=== PATIENT | female | born 1935 | race Caucasian/White ===

== ENCOUNTER 2019-11-17 09:33 | Outpatient (CLI) | payer MEDICARE, SELFPAY ==
--- NOTE | ~2019-11-17 | MM_ITS ---
EXAMINATION: MM screening pallavi BI w kaylee HISTORY: Screening mammogram TECHNIQUE: Craniocaudal and mediolateral oblique 3-D tomosynthesis images were obtained and synthetic 2-D images were generated. CAD analysis was submitted and interpreted. COMPARISON: 10/03/2018, 09/30/2017, 09/27/2016 and lateral digital screening mammogram examinations BREAST PARENCHYMAL COMPOSITION: There are scattered areas of fibroglandular density. FINDINGS: There is no evidence of suspicious mass, calcification, or architectural distortion to sugg est malignancy in either breast. There has been no suspicious interval change. IMPRESSION: 1. No mammographic evidence of malignancy. 2. Recommend routine screening mammography in one year. BI-RADS Category 1: Negative Reviewed, dictated and finalized at location A. NA LOADER
== END 2019-11-17 09:34 | disposition home or self-care (01) ==
LOC: ANHIMG 09:44
PROVIDERS: PCP Family Medicine; Visit Provider Family Medicine
DX: Z12.31 Encounter for screening mammogram for malignant neoplasm of breast (principal)
CPT/HCPCS: 77063; 77067

== ENCOUNTER 2020-12-26 09:52 | Outpatient (CLI) | payer MEDICARE, SELFPAY ==
--- NOTE | ~2020-12-26 | MM_ITS ---
EXAMINATION: MM screening pallavi BI w kaylee HISTORY: Screening mammogram TECHNIQUE: Craniocaudal and mediolateral oblique 3-D tomosynthesis images were obtained and synthetic 2-D images were generated. CAD analysis was submitted and interpreted. COMPARISON: 11/17/2019, 10/03/2018, 09/30/2017 bilateral digital screening mammogram examinations BREAST PARENCHYMAL COMPOSITION: There are scattered areas of fibroglandular density. FINDINGS: There is no evidence of suspicious mass, calcification, or architectural distortion to sugg est malignancy in either breast. There has been no suspicious interval change. IMPRESSION: 1. No mammographic evidence of malignancy. 2. Recommend routine screening mammography in one year. BI-RADS Category 1: Negative Reviewed, dictated and finalized at location A. TRONIC WARFARE SPECIALIST
== END 2020-12-26 09:53 | disposition home or self-care (01) ==
LOC: ANHIMG 09:55
PROVIDERS: PCP Physician Assistant; Visit Provider Physician Assistant
DX: Z12.31 Encounter for screening mammogram for malignant neoplasm of breast (principal)
CPT/HCPCS: 77063; 77067

== ENCOUNTER 2024-03-10 08:20 | Outpatient (CLI) | payer MEDICARE, SELFPAY ==
--- NOTE | ~2024-03-10 | MR_ITS ---
EXAMINATION: MR brain/brain stem wo/w con DATE: 03/10/2024 09:42 INDICATION: Other amnesia. TECHNIQUE: Magnetic resonance imaging (MRI) of the brain and brainstem was performed without and with 10 mL MultiHance intravenous contrast. COMPARISON: Brain MRI 03/18/2012 FINDINGS: There are few scattered foci of old microhemorrhage in the brain. There are scattered areas of nonspecific increased T2-weighted signal intensity in the cerebral white matter. There is no acut e ischemic infarct or abnormal mass lesion. There is a trace right mastoid effusion. There are likely changes of ocular lens replacement surgeries. There is mild mucosal thickening in the ethmoid sinuse s. IMPRESSION: 1. Worsening moderate nonspecific cerebral white matter disease, which likely represents chronic smal l vessel ischemic disease. 2. Scattered foci of old microhemorrhage in the brain, most likely secondary to amyloid angiopathy. Reviewed, dictated and finalized at location A. IMPRESSION: 1. Worsening moderate nonspecific cerebral white matter disease, which likely r epresents chronic small vessel ischemic disease. 2. Scattered foci of old microhemorrhage in the brain, most likely secondary to amyloid angiopathy.
== END 2024-03-10 08:21 | disposition home or self-care (01) ==
PROVIDERS: PCP Family Medicine; Visit Provider Physician Assistant Medical
DX: G40.909 Epilepsy, unspecified, not intractable, without status epilepticus (principal); F03.90 Unspecified dementia, unspecified severity, without behavioral disturbance, psychotic disturbance, mood disturbance, and anxiety; R41.3 Other amnesia; R90.82 White matter disease, unspecified
CPT/HCPCS: 70553; A9577

== ENCOUNTER 2024-06-15 14:05 | Outpatient (CLI) | payer MEDICARE, SELFPAY ==
[2024-06-15 14:35] LABS: Basophils Percent Auto 0.6 % (0.2-1.2); Eosinophils Absolute Auto 0.2 K/mm3 (0-0.3); Eosinophils Percent Auto 2.4 % (0-4.4); Hematocrit 39.3 % (37.0-47.0); Hemoglobin 13.3 g/dL (12.0-15.0); Immature Granulocyte Absolute 0.02 K/mm3 (0.00-0.031); Immature Granulocyte Percent A 0.3 % (0-0.5); Lymphocytes Absolute Auto 2.21 K/mm3 (0.9-3.2); Mean Corpuscular HGB Conc 33.8 g/dl (32-36); Mean Corpuscular Hemoglobin 34.5 pg (26-34); Mean Corpuscular Volume 102.1 fl (80-100); Mean Platelet Volume 10.1 fl (7.4-10.4); Monocytes Absolute Auto 0.6 K/mm3 (0.1-0.6); Monocytes Percent Auto 9.1 % (2.6-8.5); Neutrophils Absolute Auto 3.7 K/mm3 (1.3-6.7); Neutrophils Percent Auto 54.6 % (45.5-73.1); Platelet Count Result 199 k/mm3 (150-375); Red Blood Count 3.85 M/mm3 (4.2-5.4); Red Cell Distribution Width 12.3 % (11.5-14.5); White Blood Count 6.7 K/mm3 (4.5-10.0)
[2024-06-15 15:02] LABS: Alanine Aminotransferase 21 U/L (6-35); Albumin Level 4.5 g/dL (3.5-5.1); Alkaline Phosphatase 88 U/L (38-126); Anion Gap 8 mmol/L (4-12); Aspartate Amino Transferase 33 U/L (14-36); Bilirubin,Total 0.7 mg/dL (0.2-1.3); Blood Urea Nitrogen 13 mg/dL (7-17); Calcium 9.2 mg/dL (8.4-10.2); Carbon Dioxide 30 mmol/L (22-30); Chloride 93 mmol/L (98-107); Estimated Glomerular Filt Rate > 60; Glucose 106 mg/dL (65-110); Potassium 4.5 mmol/L (3.4-5.0); Sodium 131 mmol/L (137-145)
[2024-06-15 16:10] LABS: Folic Acid > 20.0 ng/mL (2.76->20)
[2024-06-19 13:33] LABS: Methylmalonic Acid 167 nmol/L (85-423)
[2024-06-21 17:09] LABS: Vitamin D 1,25 (OH)2 Total 41 pg/mL (18-72); Vitamin D2 1,25 (OH)2 <8 pg/mL; Vitamin D3 1,25 (OH)2 41 pg/mL
== END 2024-06-15 14:06 | disposition home or self-care (01) ==
PROVIDERS: PCP Family Medicine; Visit Provider Psychiatry & Neurology Neurology
DX: G40.909 Epilepsy, unspecified, not intractable, without status epilepticus (principal); G31.84 Mild cognitive impairment of uncertain or unknown etiology; I10 Essential (primary) hypertension; E55.9 Vitamin D deficiency, unspecified
CPT/HCPCS: 36415; 80053; 82607; 82652; 82746; 83921; 84443; 85025; 86038; 86039

== ENCOUNTER 2024-09-03 09:45 | Outpatient (CLI) | payer MEDICARE, SELFPAY ==
[2024-09-03 10:34] LABS: Anion Gap 6 mmol/L (4-12); Blood Urea Nitrogen 14 mg/dL (7-17); Carbon Dioxide 29 mmol/L (22-30); Chloride 98 mmol/L (98-107); Estimated Glomerular Filt Rate 59; Glucose 103 mg/dL (65-110); Potassium 4.5 mmol/L (3.4-5.0); Sodium 133 mmol/L (137-145)
[2024-09-03 11:39] LABS: Folic Acid 17.7 ng/mL (2.76->20)
== END 2024-09-03 09:46 | disposition home or self-care (01) ==
PROVIDERS: PCP Family Medicine; Visit Provider Family Medicine
DX: D75.89 Other specified diseases of blood and blood-forming organs (principal); E87.5 Hyperkalemia
CPT/HCPCS: 36415; 80048; 82607; 82746

== ENCOUNTER 2024-12-21 09:12 | Inpatient (IN) | payer MEDICARE, SELFPAY ==
[2024-12-21] VITALS (13 sets, daily range): BP systolic 159–228; BP diastolic 64–169; PULSE 57–71; RESP 16–20; TEMP 36.4–36.5; O2SAT 96–100; BMI 22.5
--- NOTE | ~2024-12-21 | MR_ITS ---
EXAMINATION: MR brain/brain stem wo/w con DATE: 12/22/2024 11:23 INDICATION: Left-sided weakness TECHNIQUE: Magnetic resonance imaging (MRI) of the brain and brainstem was performed without and with 10 mL ProHance intravenous contrast. Sequences included sagittal and axial T1-weighted SE, axial dif fusion-weighted FS SE, axial 3D SWAN, axial T2-weighted FLAIR, and axial T2-weighted FSE. Postcontras t axial and coronal T1-weighted SE was obtained. Apparent diffusion coefficient (ADC) maps were creat ed. COMPARISON: Brain MR dated 03/10/2024 FINDINGS: There is a region of restricted diffusion consistent with acute infarct at the posterior right lentif orm nucleus and involving the posterior limb of the right internal capsule. No intracranial hemorrhag e or abnormal intracranial mass lesion. There are scattered areas of nonspecific increased T2-weighte d signal intensity in the cerebral white matter, predominantly involving the deep and periventricular white matter. There are no intraparenchymal signal abnormalities seen on the other pulse sequences. The ventricles are symmetric and normal in size. There are no abnormal extra-axial fluid collections. Flow voids are seen in the cerebral arteries on the T2-weighted sequences consistent with their expe cted patency. Right vertebral artery is dominant. Changes of bilateral intraocular lens replacement. Visualized orbits and soft tissues are unremarkable. Mild mucosal thickening in the bilateral ethmoi d sinuses. There are no areas of abnormal enhancement on the post contrast images. IMPRESSION: 1. 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 2. Additional moderate scattered periventricular predominant calcific white matter T2 hyperintensity consistent with chronic small vessel ischemic disease. Reviewed, dictated and finalized at location B. HOUSE ORDER PULLER IMPRESSION: 1. 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 2. Additional moderate scattered periventricular predominant calcific white mat ter T2 hyperintensity consistent with chronic small vessel ischemic disease.
--- NOTE | ~2024-12-21 | CT_ITS ---
EXAMINATION: CTA BRAIN/CAROTID DATE: 12/21/2024 10:19 INDICATION: Left-sided weakness TECHNIQUE: Computed tomographic angiography (CTA) of the head and neck was performed with 100 mL Omni paque-350 intravenous contrast. Multiplanar reconstructions and maximum intensity projection 3D-recon structions of the carotid arteries and of the intracranial arteries were created by the technologist on a separate workstation. Precontrast CT of the head was also obtained. Automated exposure control and iterative reconstruction technique were employed.The dose-length product was 1459.63 mGy-cm. COMPARISON: Brain MR dated 03/10/2024 FINDINGS: Carotid arteries: Visualized aortic arch is normal in caliber with no dissection. Small amount of nonhemodynamically si gnificant atherosclerotic plaque at the aortic arch and origin of the left subclavian artery. Right v ertebral artery is dominant. There is small amount of atherosclerotic plaque with 0% stenosis of the right carotid bulb relative to normal distal artery lumen diameter (NASCET criteria). There is no feliciano dent atherosclerotic plaque with 0% stenosis of the left carotid bulb relative to normal distal arter y lumen diameter. Mild biapical pleural-parenchymal scarring. Visualized superior mediastinum and cer vical soft tissues are unremarkable. Head: No acute intracranial hemorrhage, acute infarction or abnormal extra axial fluid collection. There is mild scattered white matter hypoattenuation consistent with chronic small vessel ischemic disease. S ymmetric prominence of the sulci consistent with mild to moderate age-appropriate diffuse cerebral vo lume loss. Ventricles are normal and symmetric. No mass/mass effect. No abnormally enhancing brain le sions on the postcontrast imaging. The orbits, paranasal sinuses and mastoid air cells are normal. Intracranial arteries Right vertebral artery is dominant. Small amount of nonhemodynamically significant atherosclerotic pl aque at the bilateral carotid siphons. There is no hemodynamically significant stenosis in the verteb ral, basilar and internal carotid arteries. Vertebral arteries are codominant. There are no aneurysms identified. Both A1 and P1 segments are patent. Cerebral arterial arborization appears symmetric. IMPRESSION: 1. 0% stenosis of the right and left carotid bulbs relative to normal distal artery lumen diameter (N ASCET criteria). 2. Normal aging brain. No acute intracranial process or abnormally enhancing brain lesions. 2. Unremarkable cerebral CT angiogram with no hemodynamically significant stenosis, aneurysm or throm bosis. Reviewed, dictated and finalized at location B. IC POLICY COORDINATOR IMPRESSION: 1. 0% stenosis of the right and left carotid bulbs relative to normal distal ar malathi lumen diameter (NASCET criteria). 2. Normal aging brain. No acute intracranial process or abnormally enhancing br ain lesions. 2. Unremarkable cerebral CT angiogram with no hemodynamically significant steno sis, aneurysm or thrombosis.
--- NOTE | ~2024-12-21 | MR_ITS ---
EXAMINATION: MR cervical spine wo con DATE: 12/22/2024 16:24 INDICATION: Left hemiparesis. TECHNIQUE: Magnetic resonance imaging (MRI) of the cervical spine was performed without intravenous c ontrast. COMPARISON: None FINDINGS: Sensitivity is decreased by motion artifact. There is 2 mm retrolisthesis of C5 on C6 and C 6 on C7 and 2 mm anterolisthesis of C7 on T1. There is mild chronic anterior wedging of T2 vertebral body. There is moderately decreased disc height at C2-C3 and C3-C4. There is severely decreased disc height at C4-C5 with interbody fusion. There is severely decreased disc height at C5-C6 and C6-C7. Th e spinal cord signal intensity is normal. The following disc levels are specifically discussed: C2-C3: The disc is bulging. There is mild bilateral uncovertebral joint osteoarthritis. There is star re bilateral facet joint osteoarthritis. There is mild bilateral neural foraminal stenosis. There is mild central canal stenosis. C3-C4: The disc is bulging. There is mild bilateral uncovertebral joint osteoarthritis. There is star re bilateral facet joint osteoarthritis. There is mild bilateral neural foraminal stenosis. There is mild central canal stenosis. C4-C5: There is moderate bilateral uncovertebral joint hypertrophy. There is moderate facet joint ost eoarthritis. There is ankylosis of left facet joint with moderate hypertrophy. There is mild bilatera l neural foraminal stenosis. There is mild central canal stenosis. C5-C6: The disc is bulging. There is severe bilateral uncovertebral joint osteoarthritis. There is se ashia bilateral facet joint osteoarthritis. There is moderate bilateral neural foraminal stenosis. The re is mild central canal stenosis. C6-C7: The disc is bulging. There is severe bilateral uncovertebral joint osteoarthritis. There is se ashia bilateral facet joint osteoarthritis. There is mild bilateral neural foraminal stenosis. There i s mild central canal stenosis. C7-T1: The disc does not extend beyond the endplate margin. There is no uncovertebral joint osteoarth ritis. There is severe bilateral facet joint osteoarthritis. There is mild bilateral neural foraminal stenosis. There is no central canal stenosis. IMPRESSION: 1. Severe cervical spondylosis. Reviewed, dictated and finalized at location A. INSPECTOR
--- NOTE | ~2024-12-21 | XR_ITS ---
EXAMINATION: XR chest 1V portable DATE: 12/21/2024 09:36 INDICATION: Weakness. TECHNIQUE: A single frontal view of the chest was obtained. COMPARISON: Chest 2 views 04/26/2019 FINDINGS: Calcified right lung nodules are consistent with old granulomatous disease. No pleural effu ladan or pneumothorax. The heart size is normal. There is a large hiatal hernia. IMPRESSION: 1. Large hiatal hernia. Reviewed, dictated and finalized at location A. UNT EXECUTIVE KEY ACCOUNTS IMPRESSION: 1. Large hiatal hernia.
--- NOTE | ~2024-12-21 | XR_ITS ---
EXAMINATION: XR abdomen/kub 1V DATE: 12/25/2024 11:30 INDICATION: Constipation. TECHNIQUE: A supine view of the abdomen was obtained. COMPARISON: None. FINDINGS: There are no dilated loops of bowel. There are diverticula in the colon. There is oral cont rast in the colon. There is a large hiatal hernia containing colon. IMPRESSION: 1. Large hiatal hernia containing colon. Reviewed, dictated and finalized at location A. K HOPPER
--- NOTE | ~2024-12-21 | CT_ITS ---
CTA brain carotid Ordering provider: Emilia Lee APRN History: . CVA . Comparison: December 21, 2024 Technique: CT angiogram head was performed following timed intravenous injection of contrast. Thin sl ice axial images and reformatted coronal images were obtained. Three dimensional reformatted images o f the brain were also obtained using a [employer] workstation. Radiation reduction technique utilized.Th e dose-length product was 1508.24 mGy-cm. 100 mL Omnipaque 350 was given IV. FINDINGS: HEAD: --ANTERIOR AND MIDDLE CEREBRAL ARTERIES AND BRANCHES: Normal caliber and contour. --INTERNAL CAROTID ARTERIES: Mild atheromatous disease but no significant stenosis. No occlusion. --BASILAR ARTERY AND BRANCHES: formed by the right vertebral artery. Mild atheromatous disease but no stenosis or occlusion. --POSTERIOR CEREBRAL ARTERIES: Normal caliber and contour --POSTERIOR COMMUNICATING ARTERIES: Not visualized which is probably related to congenital absence or small size. --ANEURYSM: None visualized. --BRAIN: Deep white matter ischemic changes with mild brain atrophy. No definite acute infarct or hem orrhage. --BONES AND SUPERFICIAL SOFT TISSUES: Normal. --PARANASAL SINUSES AND MASTOIDS: Normal. IMPRESSION: 1. Normal CTA head Percent stenosis per NASCET criteria is 0%. Reviewed, dictated and finalized at location A. TURNING MACHINE OPERATOR
--- NOTE | ~2024-12-21 | XR_ITS ---
EXAMINATION: XR barium swallow modified DATE: 12/23/2024 12:58 INDICATION: Dysphagia. TECHNIQUE: The patient was given barium-containing material of multiple consistencies to swallow by t he speech pathologist while I performed fluoroscopy. Fluoroscopy exposure time was 1.2 minutes. The n umber of fluoroscopy images saved to the PACS was 1. Dose-area product was 0.653 Gy-cm^2. FINDINGS: There is reduced laryngeal adduction, reduced pharyngeal squeeze, vallecular residue, pharyngeal wall residue, laryngeal penetration, and aspiration. IMPRESSION: 1. Aspiration. 2. Please refer to the speech therapy report for recommendations. Reviewed, dictated and finalized at location A. ACT LENS BLOCKER AND CUTTER
--- NOTE | 2024-12-21 09:22 | ECG_ITS ---
Test Date: 2024-12-21 09:41:45 Measurements Intervals [place] Rate: 60 P: 58 ND: 162 QRS: -1 QRSD: 88 T: 59 QT: 439 QTc: 441 Interpretive Statements SINUS RHYTHM MINIMAL VOLTAGE CRITERIA FOR LVH, CONSIDER NORMAL VARIANT [MEETS CRITERIA IN ONE OF: R(aVL), S(V1), R(V5), R(V5/V6)+S(V1)] No previous ECG available for comparison Electronically Signed On 12-22-2024 15:51:04 STAFF CLIMATE SCIENTIST by Beryl Valdez M.D.
--- NOTE | 2024-12-21 10:06 | ED_ITS ---
HPI - Neuro Symptoms/Deficit General Chief Complaint: Suspected CVA Stated Complaint: CVA Time Seen by Provider: 12/21/24 09:29 History of Present Illness HPI Narrative: Patient is an 89-year-old female who presents ER with concerns for CVA. Last known well 12/18/2024 before going to bed. Woke up the next day feeling dizzy and having trouble moving around. She has noticed weakness in her left arm in trouble getting up out of a chair. Patient has some mild aphasia that family reports is chronic but seems worsened. Patient is a poor historian. Initial blood pressure in the 220 systolic. She takes a baby aspirin. Has history of epilepsy in the past and then had a abnormal mini-mental status test that she is supposed follow-up with neurology today for further evaluation. Related Data Home Medications ?Medication ?Instructions ?Recorded ?Confirmed ?Last Taken ?Type aspirin 81 mg tablet,delayed 81 mg PO DAILY 10/28/19 12/21/24 12/20/24 History release (Aspir-) multivitamin 1 tablet PO DAILY 01/30/22 12/21/24 12/20/24 History calcium 600 mg (as cap PO 08/03/22 08/25/24 Unknown History carbonate)-vitamin D3 12.5 mcg (500 unit) capsule (Calcium with Vit D3) Allergies Allergy/AdvReac Type Severity Reaction Status Date / Time phenytoin Allergy Unknown Unknown Verified 08/25/24 10:40 Review of Systems 2 Review of Systems: All systems reviewed & are unremarkable except as noted in HPI and below Constitutional: Constitutional: Reports no additional constitutional complaints ENT: Reports system reviewed and no additional complaints, except as documented Cardiovascular: Cardiovascular: Reports no additional cardiovascular complaints Respiratory: Respiratory: Reports no additional respiratory complaints Musculoskeletal: Musculoskeletal: Reports no additional musculoskeletal complaints Neurologic: Reports system reviewed and no additional complaints, except as documented [facility] Past Medical History Medical History Epilepsy HTN (hypertension) Hyperlipidemia Minimal cognitive impairment Surgical History Surgical History History of cataract removal with insertion of prosthetic lens History of tonsillectomy Family History Family History Mother Diabetes mellitus Hypertension Sibling Diabetes mellitus Father Hypertension Sibling Breast cancer Social History Social History Social History: Living alone, one daughter lives in [place], who is POA. Has other kids in [facility] Smoking status: Never smoker Second hand tobacco smoke exposure: No Alcohol intake: current Alcohol use details: Very seldom 1 drink. Substance use: never Substance use type: does not use Do You Feel Safe in your Home?: Yes Lack of Transportation: No Lack of Food: Never True Current Housing: I Have Housing Concerned About Future Housing: No Difficulty Paying Gas/Electric Bills: No Difficulty Paying for Meds: No Currently Unemployed: No Education: High School Diploma/GED Difficulty w/ Childcare or Family Care: No Living arrangements: alone Occupation/Education: retired Gender identity (if verbalized by the patient): Female Spiritual care concerns: No Agree to blood products: Yes Exam 2 Narrative: GENERAL: Well-appearing, well-nourished, and in no acute distress. HEAD: Normocephalic, atraumatic. EYES: PERRL and EOMI. ENT: Mucous membranes moist. NECK: Supple. CHEST: Clear to auscultation. No respiratory distress. HEART: Regular rate and rhythm. Normal peripheral pulses. ABDOMEN: Soft, nontender, nondistended. EXTREMITIES: Normal range of motion. No edema. SKIN: Warm, dry, no rash. NEURO: Mild left upper extremity drift, mild left lower extremity drift. Difficulty with [id number] testing in the left upper extremity. Normal [id number] testing. No sharp touch deficit. Very minor left facial droop. Very mild expressive aphasia. Alert and oriented x3. Course Course Emergency Course: Discussed case with Dr. Morelos who will see the patient consultation. Patient's blood pressure is elevated she will receive her home medications as she did not take them this morning. Will order MRI. Aspirin given. Vital Signs Vital signs: Vital Signs Temperature 97.6 F 12/21/24 09:13 Pulse Rate 62 12/21/24 09:13 Respiratory Rate 16 12/21/24 09:13 Blood Pressure 228/78 H 12/21/24 09:13 Pulse Oximetry 96 12/21/24 09:13 Oxygen Delivery Room Air 12/21/24 09:13 Temperature 97.6 F 12/21/24 09:13 Pulse Rate 71 12/21/24 12:00 Respiratory Rate 19 12/21/24 12:00 Blood Pressure 195/88 H 12/21/24 12:00 Pulse Oximetry 98 12/21/24 12:00 Oxygen Delivery Room Air 12/21/24 09:52 MDM - Neuro Symptoms/Deficit Lab Data 12/21/24 10:35 12/21/24 10:35 Labs: Lab Results 12/21/24 12/21/24 12/21/24 Range/Units 10:07 10:35 11:54 WBC 12.1 H (4.5-10.0) K/mm3 RBC 4.24 (4.2-5.4) M/mm3 Hgb 14.5 (12.0-15.0) g/dL Hct 41.8 (37.0-47.0) % MCV 98.6 (80-100) fl MCH 34.2 H (26-34) pg MCHC 34.7 (32-36) g/dl RDW 12.0 (11.5-14.5) % Plt Count 214 (150-375) k/mm3 MPV 9.8 (7.4-10.4) fl Immature Gran % (Auto) 0.4 (0-0.5) % Neut % (Auto) 81.4 H (45.5-73.1) % Lymph % (Auto) 8.9 L (18.3-44.2) % [place] % (Auto) 8.2 (2.6-8.5) % Eos % (Auto) 0.9 (0-4.4) % Baso % (Auto) 0.2 (0.2-1.2) % Lymph # (Auto) 1.08 (0.9-3.2) K/mm3 [place] # (Auto) 1.0 H (0.1-0.6) K/mm3 Eos # (Auto) 0.1 (0-0.3) K/mm3 Baso # (Auto) 0.0 (0.0-0.1) K/mm3 Abs Immat Gran (auto) 0.05 H (0.00-0.031) K/mm3 Absolute Neuts (auto) 9.8 H (1.3-6.7) K/mm3 Absolute Nucleated RBC 0.000 (0.0-0.012) K/mm3 Nucleated RBC % 0.0 (0.0-0.2) % PT 14.4 (11.1-14.7) Seconds INR 1.1 APTT 24.5 (22.3-36.8) Seconds Sodium 131 L (137-145) mmol/L Potassium 4.1 (3.4-5.0) mmol/L Chloride 94 L (98-107) mmol/L Carbon Dioxide 26 (22-30) mmol/L Anion Gap 11 (4-12) mmol/L BUN 13 (7-17) mg/dL Creatinine 0.90 0.75 (0.7-1.2) mg/dL Estim Creat Clear Calc Not Reportable Not Reportable Estimated GFR 59 > 60 (59 - ) Glucose 112 H (65-110) mg/dL Calcium 9.1 (8.4-10.2) mg/dL Total Bilirubin 0.9 (0.2-1.3) mg/dL AST 37 H (14-36) U/L ALT 22 (6-35) U/L Alkaline Phosphatase 102 (38-126) U/L Troponin I < 0.012 (0.000-0.034) ng/mL Total Protein 7.0 (6.3-8.2) g/dL Albumin 4.1 (3.5-5.1) g/dL Urine Color Yellow (Yellow) Urine Appearance Clear (Clear) Urine pH 7.5 (5.0-9.0) Ur Specific [place] 1.023 (1.001-1.035) Urine Protein Trace (Negative) mg/dL Urine Glucose (UA) Negative (Negative) mg/dL Urine Ketones Negative (Negative) mg/dL Ur Blood (Man) Trace (Negative) Urine Nitrate Negative (Negative) Urine Bilirubin Negative (Negative) Urine Urobilinogen 0.2 (<2.0) mg/dL Leukocyte Esterase Rfl 2+ H (Negative) KAVYA/UL Urine RBC 0-2 (0-2) /hpf Urine WBC 11-20 H (0-3) /hpf Ur Squamous Epith Cells Few (Few) /hpf Urine Bacteria None seen /hpf Urine Casts 0-2 Imaging Data Radiologist's impression: ITS Impressions Chest X-Ray 12/21/24 09:40 IMPRESSION: 1. Large hiatal hernia. Head/Neck CTA 12/21/24 10:20 IMPRESSION: 1. 0% stenosis of the right and left carotid bulbs relative to normal distal artery lumen diameter (NASCET criteria). 2. Normal aging brain. No acute intracranial process or abnormally enhancing brain lesions. 2. Unremarkable cerebral CT angiogram with no hemodynamically significant stenosis, aneurysm or thrombosis. Discharge Plan Discharge Clinical Impression: CVA (cerebral vascular accident) HTN (hypertension) Qualifiers: Hypertension type: essential hypertension Qualified Code(s): I10 - Essential (primary) hypertension Patient Disposition: Still a Patient Condition: Stable Quality Stroke Scale Stroke Scale 1: Stroke scale date:: 12/21/24 Stroke scale time:: 10:00 1a Level of consciousness: alert-0 1b Level of consciousness questions: answers both correctly-0 1c Level of consciousness commands: obeys both correctly-0 2 Best gaze: normal-0 3 Visual: no visual loss-0 4 Facial palsy: minor paralysis-1 5a Motor: left arm: drift-1 5b Motor: right arm: no drift-0 6a Motor: left leg: drift-1 6b Motor: right leg: no drift-0 7 Limb ataxia: present in one limb-1 8 Sensory: normal-0 9 Best language: some loss of fluency-1 10 Dysarthria: normal-0 11 Extinction and inattention: no abnormality-0 Level:: 5
[2024-12-21 10:08] LABS: Estimated Glomerular Filt Rate 59
[2024-12-21 10:41] LABS: Basophils Percent Auto 0.2 % (0.2-1.2); Eosinophils Absolute Auto 0.1 K/mm3 (0-0.3); Eosinophils Percent Auto 0.9 % (0-4.4); Hematocrit 41.8 % (37.0-47.0); Hemoglobin 14.5 g/dL (12.0-15.0); Immature Granulocyte Absolute 0.05 K/mm3 (0.00-0.031); Immature Granulocyte Percent A 0.4 % (0-0.5); Lymphocytes Absolute Auto 1.08 K/mm3 (0.9-3.2); Lymphocytes Percent Auto 8.9 % (18.3-44.2); Mean Corpuscular HGB Conc 34.7 g/dl (32-36); Mean Corpuscular Hemoglobin 34.2 pg (26-34); Mean Corpuscular Volume 98.6 fl (80-100); Mean Platelet Volume 9.8 fl (7.4-10.4); Monocytes Percent Auto 8.2 % (2.6-8.5); Neutrophils Absolute Auto 9.8 K/mm3 (1.3-6.7); Neutrophils Percent Auto 81.4 % (45.5-73.1); Platelet Count Result 214 k/mm3 (150-375); Red Blood Count 4.24 M/mm3 (4.2-5.4); White Blood Count 12.1 K/mm3 (4.5-10.0)
[2024-12-21 10:50] LABS: Alanine Aminotransferase 22 U/L (6-35); Albumin Level 4.1 g/dL (3.5-5.1); Alkaline Phosphatase 102 U/L (38-126); Anion Gap 11 mmol/L (4-12); Aspartate Amino Transferase 37 U/L (14-36); Bilirubin,Total 0.9 mg/dL (0.2-1.3); Blood Urea Nitrogen 13 mg/dL (7-17); Calcium 9.1 mg/dL (8.4-10.2); Carbon Dioxide 26 mmol/L (22-30); Chloride 94 mmol/L (98-107); Estimated Glomerular Filt Rate > 60; Glucose 112 mg/dL (65-110); Potassium 4.1 mmol/L (3.4-5.0); Sodium 131 mmol/L (137-145)
[2024-12-21 10:54] LABS: Partial Thromboplastin Time 24.5 Seconds (22.3-36.8)
[2024-12-21 10:57] LABS: INR 1.1; Prothrombin Time 14.4 Seconds (11.1-14.7)
[2024-12-21 11:02] LABS: Troponin I < 0.012 ng/mL (0.000-0.034)
[2024-12-21] MEDS: ASPIRIN 325 MG TABLET PO (11:58)
[2024-12-21 12:05] LABS: Add Urine Microscopic? YES; Appearance Urine Clear (Clear); Bacteria Urine None Seen /hpf; Bilirubin Urine Negative (Negative); Blood Urine Trace (Negative); Color Urine Yellow (Yellow); Glucose Urine UA Negative (Negative); Ketones Urine Negative (Negative); Leukocyte Esterase Ur 2+ LEU/UL (Negative); Nitrate Urine Negative (Negative); Non Pathogenic Casts 0-2; Protein Urine Trace mg/dL (Negative); RBC Urine 0-2 /hpf (0-2); Specific Grav Ur 1.023 (1.001-1.035); Squamous Epithelial Cell Urine Few /hpf (Few); Urobilinogen Urine 0.2 mg/dL (<2.0); pH Urine 7.5 (5.0-9.0)
--- NOTE | 2024-12-21 13:01 | P.HP_ITS ---
H&P: HPI History of Present Illness Date/Time: 12/21/24 13:01 Chief Complaint: Suspected CVA Narrative: This is an 89-year-old female with a significant past medical history of TIA, Hypertension, epilepsy, hyperlipidemia who presented to the hospital with concerns for stroke. Last known well was on 12/18/2024 before going to bed. She reports that she woke up feeling dizzy and having trouble moving around on Saturday of last week. She also noted a ground level fall due to balance issues, no injuries reported. She called her daughters who got her in home PT who noticed the left sided weakness. Family also reported some mild aphasia however this is chronic but it seemed worse to the family. Patient lives at home alone. Her initial blood pressure reading on presentation was 228/78. She states that her blood pressure is normally well controlled at home. She does report lightheadedness, blurred vision, aphasia, trouble finding her words, left sided weakness in arm and leg, balance issues , and right hand tremor since Saturday of last week. She denies any headache, fever, chills, nausea, vomiting, diarrhea, abdominal pain, or chest pain. She denies any sick contacts. Workup in the hospital included chest x-ray which shown large hiatal hernia. Head/neck CTA showed 0% stenosis of the right and left carotid bulbs, normal aging brain, no acute intracranial process or abnormality enhancing brain lesions, unremarkable cerebral CT angiogram with no hemodynamically significant stenosis, aneurysm, or thrombus. Initial labs showed a white blood cell count of 12.1, INR 1.1, sodium 131, chloride 94, AST 37, troponin negative. UA was obtained and showed 2+ leukocyte, 11-20 urine WBCs, otherwise unremarkable. Urine culture was obtained and pending. EKG showed sinus rhythm with a rate of 60, QTC 439. Patient was given 325 mg aspirin while in the ED. Neurology was consulted. Review of Systems Review of Systems: All systems reviewed & are unremarkable except as noted in HPI and below PMFSH Past Medical History Medical History Brain TIA Minimal cognitive impairment Hyperlipidemia Epilepsy HTN (hypertension) Surgical History Surgical History History of cataract removal with insertion of prosthetic lens History of tonsillectomy Family History Family History Mother Diabetes mellitus Hypertension Sibling Diabetes mellitus Father Hypertension Sibling Breast cancer Social History Social History Social History: Living alone, one daughter lives in [place], who is POA. Has other kids in [facility] Smoking status: Never smoker Second hand tobacco smoke exposure: No Alcohol intake: never Alcohol use details: Very seldom 1 drink. Substance use: never Substance use type: does not use Do You Feel Safe in your Home?: Yes Lack of Transportation: No Lack of Food: Never True Current Housing: I Have Housing Concerned About Future Housing: No Difficulty Paying Gas/Electric Bills: No Difficulty Paying for Meds: No Currently Unemployed: No Education: High School Diploma/GED Difficulty w/ Childcare or Family Care: No Living arrangements: alone Occupation/Education: retired Gender identity (if verbalized by the patient): Female Spiritual care concerns: No Agree to blood products: Yes Meds Home Medications and Allergies Home Medications ?Medication ?Instructions ?Recorded ?Confirmed ?Type aspirin 81 mg tablet,delayed 81 mg PO DAILY 10/28/19 12/21/24 History release (Aspir-) multivitamin 1 tablet PO DAILY 01/30/22 12/21/24 History calcium 600 mg (as cap PO DAILY 08/03/22 08/25/24 History carbonate)-vitamin D3 12.5 mcg (500 unit) capsule (Calcium with Vit D3) carbamazepine 400 mg See Rx Instructions .Route 07/05/24 12/21/24 Rx tablet,extended release,12 hr .COMPLEX #90 tabs carvedilol 25 mg tablet See Rx Instructions .Route 10/20/24 12/21/24 Rx .COMPLEX #180 tabs nifedipine 30 mg tablet,extended 30 mg PO BID #180 tabs 12/11/24 12/21/24 Rx release 24 hr Allergies Allergy/AdvReac Type Severity Reaction Status Date / Time phenytoin Allergy Unknown Unknown Verified 08/25/24 10:40 Vital Signs Vital Signs - 24 hr 12/21/24 09:13 12/21/24 09:52 12/21/24 09:52 Temperature 97.6 F Pulse Rate 62 64 Respiratory Rate 16 Blood Pressure 228/78 H Pulse Oximetry 96 100 Oxygen Delivery Room Air Room Air 12/21/24 09:54 12/21/24 12:00 Temperature Pulse Rate 64 71 Respiratory Rate 20 19 Blood Pressure 183/169 H 195/88 H Pulse Oximetry 98 98 Oxygen Delivery Exam Narrative: General: In no acute distress, well nourished Head: atraumatic, no encephalopathy Eyes: EOMI, PERRLA, sclera clear, trouble with hand and eye coordination on the left side ENT: moist mucous membranes, nasal passages clear, Reports blurry vision at times Neck: supple, no JVD, no adenopathy, trachea midline Cardiac: Normal S1 and S2. RRR, No murmur, gallops or friction rubs, peripheral pulses intact. Respiratory: Lungs clear to auscultation, no adventitious lung sounds, currently on room air Gastrointestinal: soft, non-distended, non-tender, normoactive bowel sounds. : voiding without difficulty. Extremities: moves all extremities, 4/5 weakness noted to LUE, LLE Skin: clean, dry, intact. No wounds or lesions. Neuro: Alert and oriented x4, mild drooping noted to right side of mouth, rep orts blurred vision, lightheadedness, balance issues, decreased coordination with F-N-F testing, trouble finding words, aphasia. right hand tremor noted Psych: normal mood, normal affect, interactive H&P: Results Labs Labs: Short CBC 12/21/24 Range/Units 10:35 WBC 12.1 H (4.5-10.0) K/mm3 Hgb 14.5 (12.0-15.0) g/dL Hct 41.8 (37.0-47.0) % Plt Count 214 (150-375) k/mm3 BMP 12/21/24 12/21/24 10:07 10:35 Sodium 131 L Potassium 4.1 Chloride 94 L Carbon Dioxide 26 BUN 13 Creatinine 0.90 0.75 Glucose 112 H Calcium 9.1 Cardiac Enzymes 12/21/24 Range/Units 10:35 Troponin I < 0.012 (0.000-0.034) ng/mL Liver Function 12/21/24 Range/Units 10:35 Total Bilirubin 0.9 (0.2-1.3) mg/dL AST 37 H (14-36) U/L ALT 22 (6-35) U/L Alkaline Phosphatase 102 (38-126) U/L Albumin 4.1 (3.5-5.1) g/dL Urine 12/21/24 Range/Units 11:54 Urine Color Yellow (Yellow) Urine Appearance Clear (Clear) Urine pH 7.5 (5.0-9.0) Ur Specific [place] 1.023 (1.001-1.035) Urine Protein Trace (Negative) mg/dL Urine Glucose (UA) Negative (Negative) mg/dL Imaging Chest x-ray: Radiologist's impression: EXAMINATION: XR chest 1V portable DATE: 12/21/2024 09:36 INDICATION: Weakness. TECHNIQUE: A single frontal view of the chest was obtained. COMPARISON: Chest 2 views 04/26/2019 FINDINGS: Calcified right lung nodules are consistent with old granulomatous disease. No pleural effusion or pneumothorax. The heart size is normal. There is a large hiatal hernia. IMPRESSION: 1. Large hiatal hernia. Reviewed, dictated and finalized at location A. ENT TURNER head/neck CTA: Radiologist's impression: EXAMINATION: CTA BRAIN/CAROTID DATE: 12/21/2024 10:19 INDICATION: Left-sided weakness TECHNIQUE: Computed tomographic angiography (CTA) of the head and neck was performed with 100 mL Omnipaque-350 intravenous contrast. Multiplanar reconstructions and maximum intensity projection 3D-reconstructions of the carotid arteries and of the intracranial arteries were created by the technologist on a separate workstation. Precontrast CT of the head was also obtained. Automated exposure control and iterative reconstruction technique were employed.The dose-length product was 1459.63 mGy-cm. COMPARISON: Brain MR dated 03/10/2024 FINDINGS: Carotid arteries: Visualized aortic arch is normal in caliber with no dissection. Small amount of nonhemodynamically significant atherosclerotic plaque at the aortic arch and origin of the left subclavian artery. Right vertebral artery is dominant. There is small amount of atherosclerotic plaque with 0% stenosis of the right carotid bulb relative to normal distal artery lumen diameter (NASCET criteria). There is no evident atherosclerotic plaque with 0% stenosis of the left carotid bulb relative to normal distal artery lumen diameter. Mild biapical pleural- parenchymal scarring. Visualized superior mediastinum and cervical soft tissues are unremarkable. Head: No acute intracranial hemorrhage, acute infarction or abnormal extra axial fluid collection. There is mild scattered white matter hypoattenuation consistent with chronic small vessel ischemic disease. Symmetric prominence of the sulci consistent with mild to moderate age-appropriate diffuse cerebral volume loss. Ventricles are normal and symmetric. No mass/mass effect. No abnormally enhancing brain lesions on the postcontrast imaging. The orbits, paranasal sinuses and mastoid air cells are normal. Intracranial arteries Right vertebral artery is dominant. Small amount of nonhemodynamically significant atherosclerotic plaque at the bilateral carotid siphons. There is no hemodynamically significant stenosis in the vertebral, basilar and internal carotid arteries. Vertebral arteries are codominant. There are no aneurysms identified. Both A1 and P1 segments are patent. Cerebral arterial arborization appears symmetric. IMPRESSION: 1. 0% stenosis of the right and left carotid bulbs relative to normal distal artery lumen diameter (NASCET criteria). 2. Normal aging brain. No acute intracranial process or abnormally enhancing brain lesions. 2. Unremarkable cerebral CT angiogram with no hemodynamically significant stenosis, aneurysm or thrombosis. Reviewed, dictated and finalized at location B. ENT TURNER Assessment and Plan Assessment and plan (1) Stroke-like symptom: Code(s): R29.90 - Unspecified symptoms and signs involving the nervous system Status: Acute Assessment and Plan: notable left upper extremity and left lower extremity weakness 4/5, aphasia, trouble finding words, balance issues with recent fall, decreased hand eye coordination on finger to nose to finger testing, blurry vision, lightheadedness since 12/18/2024. Patient has history of TIA in the past. * last known well was on 12/18/2024 * chest x-ray showed large hiatal hernia * head/neck CTA revealed a normal aging brain, no acute intracranial process or abnormality, 0% stenosis of the right and left carotid bulbs, unremarkable cerebral CT angiogram with no hemodynamically significant stenosis * continue neuro checks * neurology consulted * Plan for MRI of the brain and brainstem with and without contrast * echo with bubble study ordered * EKG showed sinus rhythm with a rate of 60, QTC 441 * initial blood pressure 228/78-- initiate blood pressure control considering she is out of the window for permissive hypertension * continue cardiac monitoring * PT and OT ordered (2) HTN (hypertension): Qualifiers: Hypertension type: essential hypertension Qualified Code(s): I10 - Essential (primary) hypertension Code(s): I10 - Essential (primary) hypertension Status: Acute Assessment and Plan: * initial blood pressure 228/78 * patient ordered 325 mg of aspirin, Coreg 25 mg, nifedipine XL 30 mg since we are out of the permissive hypertension window (3) Hyperlipidemia: Qualifiers: Hyperlipidemia type: mixed hyperlipidemia Qualified Code(s): E78.2 - Mixed hyperlipidemia Code(s): E78.5 - Hyperlipidemia, unspecified Status: Acute Assessment and Plan: * continue aspirin * patient not currently on statins (4) Epilepsy: Qualifiers: 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 Status epilepticus: without status epilepticus Qualified Code(s): 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, intractable, without status epilepticus Code(s): G40.909 - Epilepsy, unspecified, not intractable, without status epilepticus Status: Acute Assessment and Plan: * continue Tegretol Quality VTE Prophylaxis VTE prophylaxis: pharmacologic ordered Hospitalist [facility] Advance Care Plan I have confirmed that the patient's Advanced Care Plan is present, code status is documented, or surrogate decision maker is listed in patient medical record.: Yes Medication Reconciliation I have utilized all available resources to obtain, update and review the patients current medications (includes all prescriptions, OTC, herbals, cannabis, and nutritional supplements).: Yes
[2024-12-21] MEDS: carvediloL 25 MG TABLET PO ×2 (15:15→20:53)
[2024-12-21] MEDS: NIFEdipine 30 MG TAB.ER.24 PO ×2 (15:16→20:52)
--- NOTE | 2024-12-21 17:54 | ADMGEN ---
This patient, Zuleyma Vasquez, was admitted to Medical Room 248-. Patient/family oriented to hospital policies and general routines including ID bracelet, bed and alarms, visiting hours, pain management, procedures, bathroom and other care routines, personal items, smoking policy, room service/diet, and visiting hours. Information on how to activate the Rapid Response Team has been discussed. Patient/Family are encouraged to report perceived risks to care and to ask questions if they do not understand what they are told or what they should do.
[2024-12-21] MEDS: CARBAMAZEPINE XR 200 MG TAB.ER.12H 400 MG PO (20:52)
[2024-12-22] VITALS (12 sets, daily range): BP systolic 151–185; BP diastolic 62–103; PULSE 64–72; RESP 16–18; TEMP 36.4–36.8; O2SAT 97–100; BMI 22.5
--- NOTE | 2024-12-22 | ECHO_ITS ---
Patient Info Name: Zuleyma Vasquez Age: 89 years : 1935 Gender: Female Ht: 59 in Wt: 105 lbs BSA: 1.41 m2 HR: 74 bpm BP: 151 / 67 mmHg Heart Rhythm: Sinus Rhythm Technical Quality: Good Exam Date: 12/22/2024 1:28 PM Exam Location: Echo Lab Patient Status: Inpatient Admit Date: 12/21/2024 Staff Ordering Physician: Silvia Wade APRN Program Director [employer] Television: Carmelina Ang RDCS Attending Provider: Ranjeet Mckinney MD Referring Physician: Sheri BOLANOS; Exam Type: CA echo doppler w bubble study Study Info Indications - Stroke Complete two-dimensional, color flow and Doppler transthoracic echocardiogram is performed with agitated saline. Contrast/Agitated Saline Contrast/Ag. Saline: Agitated Saline Amount: 20.00 ml Administered By: Lakeshia Mandel RDCS Existing IV Access: Yes IV Access Condition: patent with no signs of infiltration Summary 1. Left ventricular chamber dimension is normal. 2. Left ventricular systolic function is normal, estimated at 65-70%. 3. There is mildly increased left ventricular wall thickness. 4. The left ventricular diastolic function is grade I diastolic dysfunction. 5. Right ventricular systolic function is normal. 6. Suspected patent foramen ovale visualized by agitated saline imaging. Bubble study shows a mild right to left shunt both at rest and with Valsalva. 7. There is mild aortic valve regurgitation. 8. There is mild tricuspid valve regurgitation. Left Ventricle Left ventricular chamber dimension is normal. Left ventricular systolic function is normal, estimated at 65-70%. There is mildly increased left ventricular wall thickness. The left ventricular diastolic function is grade I diastolic dysfunction. Right Ventricle Right ventricular chamber dimension is normal. Right ventricular systolic function is normal. Left Atria Left atrial chamber dimension is normal. Right Atria Right atrial chamber dimension is normal. Atrial Septum Suspected patent foramen ovale visualized by agitated saline imaging. Bubble study shows a mild right to left shunt both at rest and with Valsalva. Aortic Valve The aortic valve is probable trileaflet. There is mild aortic valve regurgitation. There is mild aortic valve calcification. There is no aortic valve stenosis. Pulmonic Valve The pulmonic valve is not well visualized. Mitral Valve There is trace mitral valve regurgitation. Tricuspid Valve There is mild tricuspid valve regurgitation. Pericardium/Pleural There is no pericardial effusion. Inferior Vena Cava Normal inferior vena cava with >50% collapse upon inspiration consistent with normal right atrial pressure, 3 mmHg. Aorta The aortic root size at the sinus of Valsalva is normal. Left Ventricular Outflow Tract Name Value Normal LVOT 2D LVOT Diameter 1.8 cm LVOT Doppler LVOT Peak Gradient 5 mmHg LVOT Mean Gradient 3 mmHg LVOT VTI 25 cm LVOT VTI/AV VTI Ratio 0.7 LVOT Stroke Volume 62 ml LVOT CO 11.1 l/min LVOT CI 7.9 l/min/m2 Pulmonic Valve Name Value Normal PV Doppler PV Peak Gradient 4 mmHg Mitral Valve Name Value Normal MV Doppler MV Decel [place] 187 cm/s2 MV PHT 77 ms MV Area (PHT) 2.9 cm2 4.0-5.0 MV Diastolic Function MV E Peak Velocity 50 cm/s MV A Peak Velocity 89 cm/s MV E/A 0.6 MV Decel Time 266 ms MV Annular TDI MV E/e' (Septal) 7.9 <=8.0 MV E/e' (Lateral) 6.7 <=8.0 MV E/e' (Average) 7.3 Tricuspid Valve Name Value Normal TV Regurgitation Doppler TR Peak Velocity 262 cm/s TR Peak Gradient 25 mmHg Estimated PAP/RSVP RA Pressure 3 mmHg <=5 PA Systolic Pressure 30 mmHg <36 RV Systolic Pressure 30 mmHg <36 Aorta Name Value Normal Ascending Aorta Ao Root Diameter (MM) 2.8 cm Ao Root Diam Index (MM) 2.0 cm/m2 Aortic Valve Name Value Normal AV Doppler AV Peak Velocity 182 cm/s AV Peak Gradient 11 mmHg AV Mean Gradient 6 mmHg AV VTI 36 cm AV Area (Cont Eq VTI) 1.7 cm2 >=3.0 AV Area (Cont Eq Sanchez) 1.5 cm2 AV Regurgitation 2D LVOT Area 2.5 cm2 AV Regurgitation Doppler AR Decel Time 2,798 ms AR Decel [place] 157 cm/s2 AR PHT 811 ms Ventricles Name Value Normal LV Dimensions 2D/MM IVS Diastolic Thickness (2D) 1.2 cm 0.6-1.0 LVID Diastole (2D) 4.2 cm 3.8-5.2 LVIW Diastolic Thickness (2D) 1.0 cm 0.6-0.9 LVID Systole (2D) 2.7 cm 2.2-3.5 LVOT Diameter 1.8 cm LV Mass (2D Cubed) 155.39 g 67.00-162.00 LV Mass Index (2D Cubed) 110 g/m2 43-95 Relative Wall Thickness (2D) 0.47 LV Fractional Shortening/Ejection Fraction 2D/MM LV Fractional Shortening (2D) 35 % 27-45 LV EF (2D Teicholz) 65 % 54-74 LV Diastolic Volume (4C MOD) 64 ml LV EF (4C MOD) 71 % LV Diastolic Volume (2C MOD) 71 ml LV EF (2C MOD) 71 % LV Diastolic Volume (BP MOD) 71 ml 46-106 LV Diastolic Volume Index (BP MOD) 51 ml/m2 29-61 LV Systolic Volume (BP MOD) 21 ml 14-42 LV Systolic Volume Index (BP MOD) 15 ml/m2 8-24 LV EF (BP MOD) 71 % 54-74 LV Diastolic Length (4C) 6.4 cm LV Systolic Length (4C) 4.5 cm LV Stroke Volume (4C MOD) 46 ml Atria Name Value Normal LA Dimensions LA Dimension (MM) 3.2 cm 2.7-3.8 LA Volume (4C A-L) 33 ml LA Volume (BP A-L) 34 ml Report Signatures
[2024-12-22 06:12] LABS: Basophils Percent Auto 0.2 % (0.2-1.2); Eosinophils Absolute Auto 0.3 K/mm3 (0-0.3); Eosinophils Percent Auto 2.4 % (0-4.4); Hematocrit 41.5 % (37.0-47.0); Immature Granulocyte Absolute 0.05 K/mm3 (0.00-0.031); Immature Granulocyte Percent A 0.4 % (0-0.5); Lymphocytes Absolute Auto 1.45 K/mm3 (0.9-3.2); Mean Corpuscular HGB Conc 33.7 g/dl (32-36); Mean Corpuscular Hemoglobin 33.6 pg (26-34); Mean Corpuscular Volume 99.5 fl (80-100); Mean Platelet Volume 10.3 fl (7.4-10.4); Monocytes Absolute Auto 0.9 K/mm3 (0.1-0.6); Neutrophils Absolute Auto 8.5 K/mm3 (1.3-6.7); Platelet Count Result 225 k/mm3 (150-375); Red Blood Count 4.17 M/mm3 (4.2-5.4); Red Cell Distribution Width 11.9 % (11.5-14.5); White Blood Count 11.1 K/mm3 (4.5-10.0)
[2024-12-22 06:26] LABS: Alanine Aminotransferase 22 U/L (6-35); Albumin Level 4.2 g/dL (3.5-5.1); Alkaline Phosphatase 94 U/L (38-126); Anion Gap 12 mmol/L (4-12); Aspartate Amino Transferase 34 U/L (14-36); Bilirubin,Total 0.8 mg/dL (0.2-1.3); Blood Urea Nitrogen 14 mg/dL (7-17); Calcium 9.3 mg/dL (8.4-10.2); Carbon Dioxide 24 mmol/L (22-30); Chloride 95 mmol/L (98-107); Estimated Glomerular Filt Rate > 60; Glucose 112 mg/dL (65-110); Sodium 131 mmol/L (137-145)
--- NOTE | 2024-12-22 09:20 | P.PNIM_ITS ---
Progress Note: A&P Assessment and Plan (1) Stroke-like symptom: Code(s): R29.90 - Unspecified symptoms and signs involving the nervous system Status: Acute Assessment and Plan: notable left upper extremity and left lower extremity weakness 4/5, aphasia, trouble finding words, balance issues with recent fall, decreased hand eye coordination on finger to nose to finger testing, blurry vision, lightheadedness since 12/18/2024. Patient has history of TIA in the past. * last known well was on 12/18/2024 * chest x-ray showed large hiatal hernia * head/neck CTA revealed a normal aging brain, no acute intracranial process or abnormality, 0% stenosis of the right and left carotid bulbs, unremarkable cerebral CT angiogram with no hemodynamically significant stenosis * continue neuro checks * neurology consulted * Plan for MRI of the brain and brainstem with and without contrast * echo with bubble study ordered * EKG showed sinus rhythm with a rate of 60, QTC 441 * initial blood pressure 228/78-- initiate blood pressure control considering she is out of the window for permissive hypertension * continue cardiac monitoring * PT and OT ordered 12/22/24: * Started Plavix and atorvastatin currently on an ASA * brain MRI 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 * lipid panel and A1c pending * Neurology ordered MR cervical * Speech evaluation * Echo with bubble pending (2) HTN (hypertension): Qualifiers: Hypertension type: essential hypertension Qualified Code(s): I10 - Essential (primary) hypertension Code(s): I10 - Essential (primary) hypertension Status: Acute Assessment and Plan: * initial blood pressure 228/78 * patient ordered 325 mg of aspirin, Coreg 25 mg, nifedipine XL 30 mg since we are out of the permissive hypertension window 12/22/24: * BP improved 151/67 * nifedipine was increased to 30mg XL BID (3) Hyperlipidemia: Qualifiers: Hyperlipidemia type: mixed hyperlipidemia Qualified Code(s): E78.2 - Mixed hyperlipidemia Code(s): E78.5 - Hyperlipidemia, unspecified Status: Acute Assessment and Plan: * continue aspirin * patient not currently on statins 12/22: * Lipid panel pending * started on atorvastatin 80 mg (4) Epilepsy: Qualifiers: 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 Status epilepticus: without status epilepticus Qualified Code(s): 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, intractable, without status epilepticus Code(s): G40.909 - Epilepsy, unspecified, not intractable, without status epilepticus Status: Acute Assessment and Plan: * continue Tegretol * seizure precautions if indicated Plan Code status: Full code per patient DVT prophylaxis: Lovenox Stress ulcer prophylaxis: NA PT/OT notes: PT/ OT evaluation Disposition: patient continues admission for further evaluation and treatment of stroke-like symptoms CT head and CTA with no significant findings currently waiting on MRI brain and echocardiogram, neurology consulted for further recommendations PT OT evaluation to assist with discharge planning needs. Time Spent With Patient Time with patient: 15 - 25 minutes Subjective Date/time seen: 12/22/24 09:20 Interval history: This is an 89-year-old female with a significant past medical history of TIA, Hypertension, epilepsy, hyperlipidemia who was admitted to hospital for further evaluation of stroke-like symptoms at home. CT head showed no acute findings currently pending MRI and with Neurology consult 12/22/24: Assumed Care Patient with worsening left sided weakness strength 2/5, denies difficulty swallowing but family at bedside report coughing with po medications this am. MRI did show acute infarct of the right posterior lentiform. Patient denied CP, SOB, dizziness but did endorse some blurred vision. Review of Systems Review of Systems: All systems reviewed & are unremarkable except as noted in HPI and below Exam Const: General: comfortable and no acute distress HENMT: Mouth: Yes moist mucous membranes Eyes: Pupils: Equal, round and reactive pupils present Other: Left eye with dropping of lid opposite of effected CVA side Neck: Neck: supple and no JVD Resp: Effort & Inspection: normal respiratory effort Cardio: Rate: regular rate GI: GI Palp: Yes Soft to palpation Auscultation: normal bowel sounds Skin: General skin exam: normal color and no rashes or lesions noted Neuro: Motor exam (neuro): Abnormal motor strength present left upper extremity , left lower extremity Other: Alert and oriented x4, right facial dropping, reports blurred vision Extrem: Other: moves all extremities, 2/5 weakness noted to [place] Psych: Mental Status: mental status grossly normal Objective Data Vital Signs Vital Signs: Vital Signs - 24 hr 12/21/24 09:52 12/21/24 09:52 12/21/24 09:54 Temperature Pulse Rate 64 64 Respiratory Rate 20 Blood Pressure 183/169 H Pulse Oximetry 100 98 Oxygen Delivery Room Air 12/21/24 12:00 12/21/24 15:15 12/21/24 15:19 Temperature Pulse Rate 71 66 67 Respiratory Rate 19 18 Blood Pressure 195/88 H 179/78 H Pulse Oximetry 98 97 Oxygen Delivery 12/21/24 16:01 12/21/24 16:50 12/21/24 18:02 Temperature Pulse Rate 65 69 Respiratory Rate 18 Blood Pressure 159/87 H Pulse Oximetry 97 97 Oxygen Delivery 12/21/24 18:10 12/21/24 18:12 12/21/24 19:39 Temperature 97.6 F 97.7 F Pulse Rate 65 63 Respiratory Rate 18 18 Blood Pressure 207/91 H 162/64 H Pulse Oximetry 97 98 Oxygen Delivery Room Air 12/21/24 20:00 12/21/24 20:00 12/21/24 20:53 Temperature Pulse Rate 66 57 L 66 Respiratory Rate 18 Blood Pressure Pulse Oximetry 98 Oxygen Delivery Room Air 12/22/24 00:00 12/22/24 03:59 12/22/24 04:00 Temperature 98.2 F Pulse Rate 68 68 67 Respiratory Rate 18 Blood Pressure 151/67 H Pulse Oximetry 98 Oxygen Delivery Intake/Output Intake/Output: Intake & Output 12/19/24 12/20/24 12/21/24 12/22/24 23:59 23:59 23:59 23:59 Intake Total 120 290 Balance 120 290 Meds/Results Medications: Active Medications Generic Name Dose Route Start Last Admin Trade Name Freq PRN Reason Stop Dose Admin Acetaminophen 650 mg 12/21/24 11:25 Acetaminophen 325 Mg Tablet PO Q4H PRN Mild Pain (1-3) or Fever Hydrocodone Bitart/Acetaminophen 1 tab 12/21/24 11:25 Hydrocodone/Acetaminophen (*Crx) 5-325 Mg Tablet PO Q4H PRN Pain Rated 4-6 Aspirin 81 mg 12/22/24 09:00 Aspirin 81 Mg Enteric Tablet PO DAILY HILARIO Carbamazepine 400 mg 12/21/24 21:00 12/21/24 20:52 Carbamazepine Xr 200 Mg Tab.Er.12h PO 400 mg Q12HR HILARIO Administration Carvedilol 25 mg 12/21/24 21:00 12/21/24 20:53 Carvedilol 25 Mg Tablet PO 25 mg Q12HR HILARIO Administration Enoxaparin Sodium 40 mg 12/22/24 09:00 Enoxaparin 40 Mg/0.4 Ml Syringe SUB-Q DAILY HILARIO Multivitamins Therapeutic 1 tablet 12/22/24 09:00 Multivitamins Therapeutic Tab (*Bkc) PO DAILY HILARIO Nifedipine 30 mg 12/21/24 21:00 12/21/24 20:52 Nifedipine 30 Mg Tab.Er.24 PO 30 mg Q12HR HILARIO Administration Ondansetron HCl 4 mg 12/21/24 11:25 Ondansetron Inj 4 Mg/2 Ml Vial IV PUSH Q4H PRN Nausea Perflutren Lipid Microsphere 0 ml 12/21/24 13:12 Perflutren Lipid Microspheres 1.5 Ml Vial Diluted To 10 Ml Total Volume IV PUSH 12/24/24 13:13 ONCE PRN adequate visualization Protocol Radiology Results: ITS Impressions Chest X-Ray 12/21/24 09:40 IMPRESSION: 1. Large hiatal hernia. Head/Neck CTA 12/21/24 10:20 IMPRESSION: 1. 0% stenosis of the right and left carotid bulbs relative to normal distal artery lumen diameter (NASCET criteria). 2. Normal aging brain. No acute intracranial process or abnormally enhancing brain lesions. 2. Unremarkable cerebral CT angiogram with no hemodynamically significant st enosis, aneurysm or thrombosis. Labs Labs: Laboratory Results - last 24 hr 12/21/24 12/21/24 12/21/24 10:07 10:35 11:54 WBC 12.1 H RBC 4.24 Hgb 14.5 Hct 41.8 MCV 98.6 MCH 34.2 H MCHC 34.7 RDW 12.0 Plt Count 214 MPV 9.8 Immature Gran % (Auto) 0.4 Neut % (Auto) 81.4 H Lymph % (Auto) 8.9 L Nobles % (Auto) 8.2 Eos % (Auto) 0.9 Baso % (Auto) 0.2 Lymph # (Auto) 1.08 Nobles # (Auto) 1.0 H Eos # (Auto) 0.1 Baso # (Auto) 0.0 Abs Immat Gran (auto) 0.05 H Absolute Neuts (auto) 9.8 H Absolute Nucleated RBC 0.000 Nucleated RBC % 0.0 PT 14.4 INR 1.1 APTT 24.5 Sodium 131 L Potassium 4.1 Chloride 94 L Carbon Dioxide 26 Anion Gap 11 BUN 13 Creatinine 0.90 0.75 Estim Creat Clear Calc Not Reportable Not Reportable Estimated GFR 59 > 60 Glucose 112 H Calcium 9.1 Total Bilirubin 0.9 AST 37 H ALT 22 Alkaline Phosphatase 102 Troponin I < 0.012 Total Protein 7.0 Albumin 4.1 Urine Color Yellow Urine Appearance Clear Urine pH 7.5 Ur Specific [place] 1.023 Urine Protein Trace Urine Glucose (UA) Negative Urine Ketones Negative Ur Blood (Man) Trace Urine Nitrate Negative Urine Bilirubin Negative Urine Urobilinogen 0.2 Leukocyte Esterase Rfl 2+ H Urine RBC 0-2 Urine WBC 11-20 H Ur Squamous Epith Cells Few Urine Bacteria None seen Urine Casts 0-2 12/22/24 05:36 WBC 11.1 H RBC 4.17 L Hgb 14.0 Hct 41.5 MCV 99.5 MCH 33.6 MCHC 33.7 RDW 11.9 Plt Count 225 MPV 10.3 Immature Gran % (Auto) 0.4 Neut % (Auto) 76.0 H Lymph % (Auto) 13.0 L [place] % (Auto) 8.0 Eos % (Auto) 2.4 Baso % (Auto) 0.2 Lymph # (Auto) 1.45 Nobles # (Auto) 0.9 H Eos # (Auto) 0.3 Baso # (Auto) 0.0 Abs Immat Gran (auto) 0.05 H Absolute Neuts (auto) 8.5 H Absolute Nucleated RBC 0.000 Nucleated RBC % 0.0 PT INR APTT Sodium 131 L Potassium 4.0 Chloride 95 L Carbon Dioxide 24 Anion Gap 12 BUN 14 Creatinine 0.73 Estim Creat Clear Calc Not Reportable Estimated GFR > 60 Glucose 112 H Calcium 9.3 Total Bilirubin 0.8 AST 34 ALT 22 Alkaline Phosphatase 94 Troponin I Total Protein 7.0 Albumin 4.2 Urine Color Urine Appearance Urine pH Ur Specific [place] Urine Protein Urine Glucose (UA) Urine Ketones Ur Blood (Man) Urine Nitrate Urine Bilirubin Urine Urobilinogen Leukocyte Esterase Rfl Urine RBC Urine WBC Ur Squamous Epith Cells Urine Bacteria Urine Casts Quality VTE Prophylaxis VTE prophylaxis: pharmacologic ordered -Patient's previous records reviewed on admission -ER notes reviewed in detail on admission -discussed all findings and current treatment plan with patient/Family/POA -Consultations reviewed for recommendations -Patient's disposition for safe discharge discussed with correctional casework specialist Dictation performed by [email or web address] direct speech recognition software, therefore cargo mate variants and typographical errors may occur. Hospitalist MIPS Advance Care Plan I have confirmed that the patient's Advanced Care Plan is present, code status is documented, or surrogate decision maker is listed in patient medical record.: Yes Medication Reconciliation I have utilized all available resources to obtain, update and review the patients current medications (includes all prescriptions, OTC, herbals, cannabis, and nutritional supplements).: Yes The patient is not eligible for med reconciliation; the patient is in a emergent medical situation where delaying treatment would jeopardize the patients health.: No
[2024-12-22] MEDS: ASPIRIN 81 MG ENTERIC TABLET PO (09:58)
[2024-12-22] MEDS: CLOPIDOGREL BISULFATE 75 MG TABLET PO (09:59)
[2024-12-22] MEDS: CARBAMAZEPINE XR 200 MG TAB.ER.12H 400 MG PO (10:02)
[2024-12-22] MEDS: MULTIVITAMINS THERAPEUTIC TAB (*BKC) 1 TABLET PO (10:02)
[2024-12-22] MEDS: carvediloL 25 MG TABLET PO ×2 (10:02→20:43)
[2024-12-22] MEDS: NIFEdipine 30 MG TAB.ER.24 PO ×2 (10:02→20:44)
[2024-12-22] MEDS: ENOXAPARIN 40 MG/0.4 ML SYRINGE SUB-Q (10:05)
[2024-12-22 10:06] LABS: Cholesterol 279 mg/dL (0-200); HDL Direct 93 mg/dL; Triglycerides 112 mg/dL (<150)
[2024-12-22 10:16] LABS: LDL Cholesterol Direct 152 mg/dL
--- NOTE | 2024-12-22 12:30 | WPDNEURCNPN ---
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 Patient is being continued on aspirin 81mg daily. 2. Patient has ongoing history of being epileptic for which she has been under the care of Dr. hess and has been taking Tegretol 400mg daily though this particular incident is not related to seizure but I will obtain the EEG, though she has not had any seizure for the last 13 years and has been taking tegretol 400 mg extended release q.12 hours as per the notes available. Her folate level was 17.7 9 B12 level was 857 in August of 2024. 3. CTA is normal 4. Echocardiogram will be obtained. Consult date: 12/22/24 HPI: Zuleyma Vasquez is a 89 year old female admitted to the hospital through the emergency room for the possibility of stroke. Last known well December 18, 2024 before going to bed. Woke up next day with complaint of being dizzy and difficulties in moving around in addition to the weakness in the left upper extremity and difficulties getting out of the chair and also speech difficulties. Initial blood pressure 220, patient is receiving baby aspirin daily ,she does have a history of epilepsy in the past. Patient is allergic to phenytoin. Past history as mentioned before 1. Epilepsy 2. Hypertension 3. Minimal cognitive impairment 4. Never smoker 5. Very seldom alcohol. Initial exam in the emergency room left upper extremity drift, left lower extremity drift ,difficulties [id number] testing the left upper extremity ,very minimal left facial droop ,vital signs blood pressure 228/78 CBC normal ,BMP with sodium 131 ,routine lab normal ,chest x-ray large hiatal hernia, head neck CTA negative ,admitted to the hospital for possibility of the stroke. Brain MRI with acute infarct involving the posterior right lentiform nucleus and adjacent posterior limb of the right internal capsule in addition to moderate scattered periventricular predominantly calcific white matter disease. Received 325mg aspirin in the emergency room, [facility] Past Medical History Medical History Brain TIA Minimal cognitive impairment Hyperlipidemia Epilepsy HTN (hypertension) Surgical History Surgical History History of cataract removal with insertion of prosthetic lens History of tonsillectomy Family History Family History Mother Diabetes mellitus Hypertension Sibling Diabetes mellitus Father Hypertension Sibling Breast cancer Social History Social History Social History: Living alone, one daughter lives in [place], who is POA. Has other kids in [facility] Smoking status: Never smoker Second hand tobacco smoke exposure: No Alcohol intake: never Alcohol use details: Very seldom 1 drink. Substance use: never Substance use type: does not use Do You Feel Safe in your Home?: Yes Lack of Transportation: No Lack of Food: Never True Current Housing: I Have Housing Concerned About Future Housing: No Difficulty Paying Gas/Electric Bills: No Difficulty Paying for Meds: No Currently Unemployed: No Education: High School Diploma/GED Difficulty w/ Childcare or Family Care: No Living arrangements: alone Occupation/Education: retired Gender identity (if verbalized by the patient): Female Spiritual care concerns: No Agree to blood products: Yes Meds Home Medications and Allergies Home Medications ?Medication ?Instructions ?Recorded ?Confirmed ?Type aspirin 81 mg tablet,delayed 81 mg PO DAILY 10/28/19 12/21/24 History release (Aspir-) multivitamin 1 tablet PO DAILY 01/30/22 12/21/24 History calcium 600 mg (as cap PO DAILY 08/03/22 08/25/24 History carbonate)-vitamin D3 12.5 mcg (500 unit) capsule (Calcium with Vit D3) carbamazepine 400 mg See Rx Instructions .Route 07/05/24 12/21/24 Rx tablet,extended release,12 hr .COMPLEX #90 tabs carvedilol 25 mg tablet See Rx Instructions .Route 10/20/24 12/21/24 Rx .COMPLEX #180 tabs nifedipine 30 mg tablet,extended 30 mg PO BID #180 tabs 12/11/24 12/21/24 Rx release 24 hr Allergies Allergy/AdvReac Type Severity Reaction Status Date / Time phenytoin Allergy Unknown Unknown Verified 08/25/24 10:40 Vital Signs Vital Signs - 24 hr 12/21/24 15:15 12/21/24 15:19 12/21/24 16:01 Temperature Pulse Rate 66 67 Respiratory Rate 18 Blood Pressure 179/78 H Pulse Oximetry 97 97 Oxygen Delivery 12/21/24 16:50 12/21/24 18:02 12/21/24 18:10 Temperature 36.4 C Pulse Rate 65 69 65 Respiratory Rate 18 18 Blood Pressure 159/87 H 207/91 H Pulse Oximetry 97 97 Oxygen Delivery 12/21/24 18:12 12/21/24 19:39 12/21/24 20:00 Temperature 36.5 C Pulse Rate 63 66 Respiratory Rate 18 18 Blood Pressure 162/64 H Pulse Oximetry 98 98 Oxygen Delivery Room Air Room Air 12/21/24 20:00 12/21/24 20:53 12/22/24 00:00 Temperature Pulse Rate 57 L 66 68 Respiratory Rate Blood Pressure Pulse Oximetry Oxygen Delivery 12/22/24 03:59 12/22/24 04:00 12/22/24 09:57 Temperature 36.8 C Pulse Rate 68 67 64 Respiratory Rate 18 Blood Pressure 151/67 H 161/65 H Pulse Oximetry 98 97 Oxygen Delivery 12/22/24 10:02 Temperature Pulse Rate 64 Respiratory Rate Blood Pressure Pulse Oximetry Oxygen Delivery Exam Narrative: Exam today revealed her to be awake alert cooperative in no obvious acute distress, head normocephalic with no cranial bruits, ear nose throat examination normal, neck supple with no meningeal signs, no cervical bruit, heart regular with no murmur, lungs clear to auscultation with no rhonchi or crepitations, abdomen is soft nontender with normal bowel sounds, skin normal, neurological examination revealed her to be awake alert oriented not being in the hospital and patient's daughter at the bedside, his speech rather slow but not dysphasic though mildly dysarthric, pupils round regular to light equally, feels the vision full in all 4 quadrants to finger confrontation, extraocular movements full with no spontaneous nystagmus or nystagmus on the extreme cases, facial sensation intact, symmetric in the oral cavity no fasciculation, motor examination revealed her to have left hemiparesis involving the left upper and lower extremity with hyperreflexia upgoing plantar response. She had difficulties in performing [id number]-finger and heel to knee to rose on the left side. Results Labs 12/22/24 05:36 12/22/24 05:36 Labs: Short CBC 12/22/24 Range/Units 05:36 WBC 11.1 H (4.5-10.0) K/mm3 Hgb 14.0 (12.0-15.0) g/dL Hct 41.5 (37.0-47.0) % Plt Count 225 (150-375) k/mm3 BMP 12/22/24 05:36 Sodium 131 L Potassium 4.0 Chloride 95 L Carbon Dioxide 24 BUN 14 Creatinine 0.73 Glucose 112 H Calcium 9.3 Liver Function 12/22/24 Range/Units 05:36 Total Bilirubin 0.8 (0.2-1.3) mg/dL AST 34 (14-36) U/L ALT 22 (6-35) U/L Alkaline Phosphatase 94 (38-126) U/L Albumin 4.2 (3.5-5.1) g/dL
--- NOTE | 2024-12-22 14:25 | PCPTNOTE ---
Patient going for another MRI 1425. Will follow.
[2024-12-23] VITALS (14 sets, daily range): BP systolic 137–192; BP diastolic 58–90; PULSE 55–71; RESP 12–18; TEMP 36.7–37.1; O2SAT 97–100
[2024-12-23 05:17] LABS: Basophils Percent Auto 0.4 % (0.2-1.2); Eosinophils Absolute Auto 0.3 K/mm3 (0-0.3); Eosinophils Percent Auto 3.2 % (0-4.4); Hematocrit 37.9 % (37.0-47.0); Immature Granulocyte Absolute 0.03 K/mm3 (0.00-0.031); Immature Granulocyte Percent A 0.3 % (0-0.5); Lymphocytes Percent Auto 22.4 % (18.3-44.2); Mean Corpuscular HGB Conc 34.3 g/dl (32-36); Mean Corpuscular Hemoglobin 33.7 pg (26-34); Mean Corpuscular Volume 98.2 fl (80-100); Mean Platelet Volume 9.8 fl (7.4-10.4); Monocytes Percent Auto 10.9 % (2.6-8.5); Neutrophils Absolute Auto 5.6 K/mm3 (1.3-6.7); Neutrophils Percent Auto 62.8 % (45.5-73.1); Platelet Count Result 209 k/mm3 (150-375); Red Blood Count 3.86 M/mm3 (4.2-5.4); Red Cell Distribution Width 12.2 % (11.5-14.5); White Blood Count 8.9 K/mm3 (4.5-10.0)
[2024-12-23 05:38] LABS: Alanine Aminotransferase 21 U/L (6-35); Albumin Level 3.9 g/dL (3.5-5.1); Alkaline Phosphatase 82 U/L (38-126); Anion Gap 11 mmol/L (4-12); Aspartate Amino Transferase 29 U/L (14-36); Bilirubin,Total 0.6 mg/dL (0.2-1.3); Blood Urea Nitrogen 20 mg/dL (7-17); Calcium 8.8 mg/dL (8.4-10.2); Carbon Dioxide 24 mmol/L (22-30); Chloride 96 mmol/L (98-107); Estimated Glomerular Filt Rate > 60; Glucose 104 mg/dL (65-110); Potassium 3.9 mmol/L (3.4-5.0); Sodium 131 mmol/L (137-145)
[2024-12-23] MEDS: carvediloL 25 MG TABLET PO ×2 (09:07→20:30)
[2024-12-23] MEDS: MULTIVITAMINS THERAPEUTIC TAB (*BKC) 1 TABLET PO (09:07)
[2024-12-23] MEDS: CARBAMAZEPINE XR 200 MG TAB.ER.12H 400 MG PO (09:07)
[2024-12-23] MEDS: NIFEdipine 30 MG TAB.ER.24 PO ×2 (09:07→20:31)
[2024-12-23] MEDS: ASPIRIN 81 MG ENTERIC TABLET PO (09:07)
[2024-12-23] MEDS: CLOPIDOGREL BISULFATE 75 MG TABLET PO (09:07)
[2024-12-23] MEDS: ENOXAPARIN 40 MG/0.4 ML SYRINGE SUB-Q (09:08)
--- NOTE | 2024-12-23 10:40 | PCSTNOTE ---
Please refer to the Bedside Swallow Evaluation in the EMR. Please note, silent aspiration cannot be ruled out at bedside.
[2024-12-23] MEDS: SODIUM CHLORIDE 0.9% IV 1,000 ML 75 ML IV CONT (15:27)
--- NOTE | 2024-12-23 15:50 | P.PNIM_ITS ---
Progress Note: A&P Assessment and Plan (1) Stroke-like symptom: Code(s): R29.90 - Unspecified symptoms and signs involving the nervous system Status: Acute Assessment and Plan: notable left upper extremity and left lower extremity weakness 4/5, aphasia, trouble finding words, balance issues with recent fall, decreased hand eye coordination on finger to nose to finger testing, blurry vision, lightheadedness since 12/18/2024. Patient has history of TIA in the past. * last known well was on 12/18/2024 * chest x-ray showed large hiatal hernia * head/neck CTA revealed a normal aging brain, no acute intracranial process or abnormality, 0% stenosis of the right and left carotid bulbs, unremarkable cerebral CT angiogram with no hemodynamically significant stenosis * continue neuro checks * neurology consulted * Plan for MRI of the brain and brainstem with and without contrast * echo with bubble study ordered * EKG showed sinus rhythm with a rate of 60, QTC 441 * initial blood pressure 228/78-- initiate blood pressure control considering she is out of the window for permissive hypertension * continue cardiac monitoring * PT and OT ordered 12/22/24: * Started Plavix and atorvastatin currently on an ASA * brain MRI 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 * lipid panel and A1c pending * Neurology ordered MR cervical * Speech evaluation * Echo with bubble pending (2) HTN (hypertension): Qualifiers: Hypertension type: essential hypertension Qualified Code(s): I10 - Essential (primary) hypertension Code(s): I10 - Essential (primary) hypertension Status: Acute Assessment and Plan: * initial blood pressure 228/78 * patient ordered 325 mg of aspirin, Coreg 25 mg, nifedipine XL 30 mg since we are out of the permissive hypertension window 12/22/24: * BP improved 151/67 * nifedipine was increased to 30mg XL BID (3) Hyperlipidemia: Qualifiers: Hyperlipidemia type: mixed hyperlipidemia Qualified Code(s): E78.2 - Mixed hyperlipidemia Code(s): E78.5 - Hyperlipidemia, unspecified Status: Acute Assessment and Plan: * continue aspirin * patient not currently on statins 12/22: * Lipid panel pending * started on atorvastatin 80 mg (4) Epilepsy: Qualifiers: 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 Status epilepticus: without status epilepticus Qualified Code(s): 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 Morelos, neurologist recommended to continue plavix and aspirin dual antiplatelet therapy for 4 weeks and thereafter d/c plavix and continue aspirin, plan is to discharge to acute rehab, patient will benefit with PT, patient family members are present in the room discuss with them in details and answer all their questions. patient PO intake is poor, will start patient on NS 75cc/hr, will monitor and further recommendation to follow Code status: Full code per patient DVT prophylaxis: Lovenox Stress ulcer prophylaxis: NA PT/OT notes: PT/ OT evaluation Disposition: patient continues admission for further evaluation and treatment of stroke-like symptoms CT head and CTA with no significant findings currently waiting on MRI brain and echocardiogram, neurology consulted for further recommendations PT OT evaluation to assist with discharge planning needs. Subjective Date/time seen: 12/23/24 15:50 Interval history: This is an 89-year-old female with a significant past medical history of TIA, Hypertension, epilepsy, hyperlipidemia who was admitted to hospital for further evaluation of stroke-like symptoms at home. CT head showed no acute findings currently pending MRI and with Neurology consult Patient with worsening left sided weakness strength 2/5, denies difficulty swallowing but family at bedside report coughing with po medications this am. MRI did show acute infarct of the right posterior lentiform. Patient denied CP, SOB, dizziness but did endorse some blurred vision. patient remain clinically, participitated with PT, currently sleeping, stable discuss with DR. Morelos, neurologist recommended to continue plavix and aspirin dual antiplatelet therapy for 4 weeks and thereafter d/c plavix and continue aspirin, plan is to discharge to acute rehab, patient will benefit with PT, pat ient family members are present in the room discuss with them in details and answer all their questions. patient PO intake is poor, will start patient on NS 75cc/hr, will monitor and further recommendation to follow Review of Systems Review of Systems: All systems reviewed & are unremarkable except as noted in HPI and below Exam Narrative: Elderly frail Patient is comfortable, NAD HEENT: eyes are clear and none icteric LUNGS:CTA HEART: RR S1S2 ABD: BS+, Soft and nontender Lower extremities: no edema SKIN: nonjaundiced Neuro: grossly intact. Objective Data Vital Signs Vital Signs: Vital Signs - 24 hr 12/22/24 16:00 12/22/24 20:00 12/22/24 20:00 Temperature Pulse Rate 65 68 Respiratory Rate Blood Pressure Pulse Oximetry Oxygen Delivery Room Air 12/22/24 20:43 12/22/24 20:59 12/23/24 00:00 Temperature 36.8 C Pulse Rate 65 68 59 L Respiratory Rate 16 Blood Pressure 185/103 H Pulse Oximetry 100 Oxygen Delivery 12/23/24 00:35 12/23/24 04:00 12/23/24 06:00 Temperature 36.7 C Pulse Rate 57 L 69 Respiratory Rate 18 Blood Pressure 185/90 H 146/67 H Pulse Oximetry 100 Oxygen Delivery 12/23/24 08:00 12/23/24 08:00 12/23/24 09:07 Temperature Pulse Rate 67 69 Respiratory Rate Blood Pressure Pulse Oximetry Oxygen Delivery Room Air 12/23/24 09:21 12/23/24 09:59 12/23/24 09:59 Temperature Pulse Rate Respiratory Rate Blood Pressure 191/62 H Pulse Oximetry Oxygen Delivery Room Air Room Air 12/23/24 10:43 12/23/24 12:00 12/23/24 14:00 Temperature 37.1 C Pulse Rate 55 L 63 Respiratory Rate 12 Blood Pressure 137/58 L 167/69 H Pulse Oximetry 98 Oxygen Delivery Intake/Output Intake/Output: Intake & Output 12/20/24 12/21/24 12/22/24 12/23/24 23:59 23:59 23:59 23:59 Intake Total 120 410 220 Output Total 350 Balance 120 410 -130 Meds/Results Medications: Active Medications Generic Name Dose Route Start Last Admin Trade Name Freq PRN Reason Stop Dose Admin Acetaminophen 650 mg 12/21/24 11:25 Acetaminophen 325 Mg Tablet PO Q4H PRN Mild Pain (1-3) or Fever Hydrocodone Bitart/Acetaminophen 1 tab 12/21/24 11:25 Hydrocodone/Acetaminophen (*Crx) 5-325 Mg Tablet PO Q4H PRN Pain Rated 4-6 Aspirin 81 mg 12/22/24 09:00 12/23/24 09:07 Aspirin 81 Mg Enteric Tablet PO 81 mg DAILY HILARIO Administration Atorvastatin Calcium 80 mg 12/23/24 09:00 12/23/24 09:07 Atorvastatin 40 Mg Tablet PO Not Given DAILY HILARIO Carbamazepine 400 mg 12/23/24 09:00 12/23/24 09:07 Carbamazepine Xr 200 Mg Tab.Er.12h PO 400 mg DAILY HILARIO Administration Carvedilol 25 mg 12/21/24 21:00 12/23/24 09:07 Carvedilol 25 Mg Tablet PO 25 mg Q12HR HILARIO Administration Clopidogrel Bisulfate 75 mg 12/22/24 09:25 12/23/24 09:07 Clopidogrel Bisulfate 75 Mg Tablet PO 75 mg QAM HILARIO Administration Enoxaparin Sodium 40 mg 12/22/24 09:00 12/23/24 09:08 Enoxaparin 40 Mg/0.4 Ml Syringe SUB-Q 40 mg DAILY HILARIO Administration Sodium Chloride 1,000 mls @ 75 mls/hr 12/23/24 15:20 12/23/24 15:27 Normal Saline Iv IV CONT 75 mls/hr .[id number] HILARIO Administration Multivitamins Therapeutic 1 tablet 12/22/24 09:00 12/23/24 09:07 Multivitamins Therapeutic Tab (*Bkc) PO 1 tablet DAILY HILARIO Administration Nifedipine 30 mg 12/21/24 21:00 12/23/24 09:07 Nifedipine 30 Mg Tab.Er.24 PO 30 mg Q12HR HILARIO Administration Ondansetron HCl 4 mg 12/21/24 11:25 Ondansetron Inj 4 Mg/2 Ml Vial IV PUSH Q4H PRN Nausea Perflutren Lipid Microsphere 0 ml 12/21/24 13:12 Perflutren Lipid Microspheres 1.5 Ml Vial Diluted To 10 Ml Total Volume IV PUSH 12/24/24 13:13 ONCE PRN adequate visualization Protocol Polyethylene Glycol 17 gm 12/24/24 09:00 Polyethylene Glycol 3350 17 Gm Powd.Pack PO QAM HILARIO Senna/Docusate Sodium 1 tab 12/23/24 21:00 Senna/Docusate Sodium Tablet PO HS HILARIO Radiology Results: ITS Impressions Chest X-Ray 12/21/24 09:40 IMPRESSION: 1. Large hiatal hernia. Head/Neck CTA 12/22/24 10:45 IMPRESSION: 1. Normal CTA head Percent stenosis per NASCET criteria is 0%. Brain MRI 12/22/24 11:30 IMPRESSION: 1. 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 2. Additional moderate scattered periventricular predominant calcific white matter T2 hyperintensity consistent with chronic small vessel ischemic disease. Cervical Spine MRI 12/22/24 16:46 IMPRESSION: 1. Severe cervical spondylosis. Modified Barium Swallow 12/23/24 13:39 IMPRESSION: 1. Aspiration. 2. Please refer to the speech therapy report for recommendations. Labs Labs: Laboratory Results - last 24 hr 12/23/24 05:00 WBC 8.9 RBC 3.86 L Hgb 13.0 Hct 37.9 MCV 98.2 MCH 33.7 MCHC 34.3 RDW 12.2 Plt Count 209 MPV 9.8 Immature Gran % (Auto) 0.3 Neut % (Auto) 62.8 Lymph % (Auto) 22.4 Ross % (Auto) 10.9 H Eos % (Auto) 3.2 Baso % (Auto) 0.4 Lymph # (Auto) 2.00 Ross # (Auto) 1.0 H Eos # (Auto) 0.3 Baso # (Auto) 0.0 Abs Immat Gran (auto) 0.03 Absolute Neuts (auto) 5.6 Absolute Nucleated RBC 0.000 Nucleated RBC % 0.0 Sodium 131 L Potassium 3.9 Chloride 96 L Carbon Dioxide 24 Anion Gap 11 BUN 20 H Creatinine 0.88 Estim Creat Clear Calc Not Reportable Estimated GFR > 60 Glucose 104 Calcium 8.8 Total Bilirubin 0.6 AST 29 ALT 21 Alkaline Phosphatase 82 Total Protein 7.0 Albumin 3.9 Quality VTE Prophylaxis VTE prophylaxis: pharmacologic ordered
[2024-12-23] MEDS: SENNA/DOCUSATE SODIUM TABLET 1 TAB PO (20:31)
[2024-12-24] VITALS (12 sets, daily range): BP systolic 176–189; BP diastolic 70–82; PULSE 58–73; RESP 16–17; TEMP 36.9–37.4; O2SAT 97–100
[2024-12-24] MEDS: SODIUM CHLORIDE 0.9% IV 1,000 ML 75 ML IV CONT (04:29)
[2024-12-24 05:48] LABS: Basophils Percent Auto 0.4 % (0.2-1.2); Eosinophils Absolute Auto 0.4 K/mm3 (0-0.3); Eosinophils Percent Auto 4.2 % (0-4.4); Hematocrit 39.3 % (37.0-47.0); Hemoglobin 13.4 g/dL (12.0-15.0); Immature Granulocyte Absolute 0.04 K/mm3 (0.00-0.031); Immature Granulocyte Percent A 0.5 % (0-0.5); Lymphocytes Absolute Auto 1.67 K/mm3 (0.9-3.2); Mean Corpuscular HGB Conc 34.1 g/dl (32-36); Mean Corpuscular Hemoglobin 33.8 pg (26-34); Mean Corpuscular Volume 99.2 fl (80-100); Mean Platelet Volume 9.9 fl (7.4-10.4); Monocytes Percent Auto 11.5 % (2.6-8.5); Neutrophils Absolute Auto 5.3 K/mm3 (1.3-6.7); Neutrophils Percent Auto 63.4 % (45.5-73.1); Platelet Count Result 213 k/mm3 (150-375); Red Blood Count 3.96 M/mm3 (4.2-5.4); Red Cell Distribution Width 11.9 % (11.5-14.5); White Blood Count 8.4 K/mm3 (4.5-10.0)
[2024-12-24 06:06] LABS: Alanine Aminotransferase 20 U/L (6-35); Albumin Level 3.5 g/dL (3.5-5.1); Alkaline Phosphatase 79 U/L (38-126); Anion Gap 10 mmol/L (4-12); Aspartate Amino Transferase 26 U/L (14-36); Bilirubin,Total 0.7 mg/dL (0.2-1.3); Blood Urea Nitrogen 18 mg/dL (7-17); Calcium 8.6 mg/dL (8.4-10.2); Carbon Dioxide 23 mmol/L (22-30); Chloride 100 mmol/L (98-107); Estimated Glomerular Filt Rate > 60; Glucose 100 mg/dL (65-110); Potassium 3.6 mmol/L (3.4-5.0); Sodium 133 mmol/L (137-145)
[2024-12-24] MEDS: MULTIVITAMINS THERAPEUTIC TAB (*BKC) 1 TABLET PO (09:06)
[2024-12-24] MEDS: polyethylene glycoL 3350 17 GM POWD.PACK PO (09:07)
[2024-12-24] MEDS: ENOXAPARIN 40 MG/0.4 ML SYRINGE SUB-Q (09:07)
[2024-12-24] MEDS: CARBAMAZEPINE XR 200 MG TAB.ER.12H 400 MG PO (09:07)
[2024-12-24] MEDS: ASPIRIN 81 MG ENTERIC TABLET PO (09:07)
[2024-12-24] MEDS: carvediloL 25 MG TABLET PO ×2 (09:07→20:27)
[2024-12-24] MEDS: CLOPIDOGREL BISULFATE 75 MG TABLET PO (09:07)
[2024-12-24] MEDS: NIFEdipine 30 MG TAB.ER.24 PO ×2 (09:07→20:27)
--- NOTE | 2024-12-24 10:31 | PM.CNCAR ---
Assessment and Plan Assessment and plan (1) HTN (hypertension): Qualifiers: Hypertension type: essential hypertension Qualified Code(s): I10 - Essential (primary) hypertension Code(s): I10 - Essential (primary) hypertension Status: Acute (2) Hyperlipidemia: Qualifiers: Hyperlipidemia type: mixed hyperlipidemia Qualified Code(s): E78.2 - Mixed hyperlipidemia Code(s): E78.5 - Hyperlipidemia, unspecified Status: Acute (3) CVA (cerebral vascular accident): Code(s): I63.9 - Cerebral infarction, unspecified Status: Acute (4) PFO (patent foramen ovale): Code(s): Q21.12 - Patent foramen ovale Status: Acute Plan 89-year-old woman with history of hypertension and epilepsy presented with left-sided weakness as well as left facial droop found have acute CVA on MRI as well as positive bubble study transthoracic echocardiogram for which we are consulted PFO -she most likely has PFO is as evident on a positive bubble study however without a transesophageal echocardiogram, difficult to define the type of intracardiac [id number] shunt -we have discussed that the positive bubble study on the transthoracic echocardiogram is most likely a PFO, the incidence of PFO, her ROPE score, and the utility of PFO closure in her clinical presentation -after discussion of the indications, potential benefits, risks, and alternatives, the family and patient have opted to not pursue transesophageal echocardiogram as the decision was also made to not pursue closure of possible PFO Acute CVA -while she is less likely to benefit from further anatomical evaluation of the [id number]-wm-nieu shunt, she would benefit from 30 day MCT as 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 b.i.d. Should the patient and her family opt to have a 30 day event monitor, please reach out to Cardiology and we can set this up at that time History of Present Illness History of Present Illness Consult date/time: 12/24/24 10:31 Reason For Visit: CVA Narrative: 89-year-old woman with history of hypertension and epilepsy presented with left-sided weakness as well as left facial droop found have acute CVA on MRI as well as positive bubble study transthoracic echocardiogram for which we are consulted. She denies chest discomfort shortness of breath. She does live alone at home and able to take care of most of her daily activities on her own. She is able to ambulate around the grocery store without chest discomfort shortness of breath. About 20 years ago, she had possible event of TIA with symptoms of forgetfulness. No other known events and no blood clots history of the legs or lungs. Review of Systems Cardiovascular: Cardiovascular: Reports as per HPI Respiratory: Respiratory: Reports as per HPI PMFSH Past Medical History Medical History Brain TIA Minimal cognitive impairment Hyperlipidemia Epilepsy HTN (hypertension) Surgical History Surgical History History of cataract removal with insertion of prosthetic lens History of tonsillectomy Family History Family History Mother Diabetes mellitus Hypertension Sibling Diabetes mellitus Father Hypertension Sibling Breast cancer Social History Social History Social History: Living alone, one daughter lives in [place], who is POA. Has other kids in [facility] Smoking status: Never smoker Second hand tobacco smoke exposure: No Alcohol intake: never Alcohol use details: Very seldom 1 drink. Substance use: never Substance use type: does not use Do You Feel Safe in your Home?: Yes Lack of Transportation: No Lack of Food: Never True Current Housing: I Have Housing Concerned About Future Housing: No Difficulty Paying Gas/Electric Bills: No Difficulty Paying for Meds: No Currently Unemployed: No Education: High School Diploma/GED Difficulty w/ Childcare or Family Care: No Living arrangements: alone Occupation/Education: retired Gender identity (if verbalized by the patient): Female Spiritual care concerns: No Agree to blood products: Yes Meds Home Medications and Allergies Home Medications ?Medication ?Instructions ?Recorded ?Confirmed ?Type aspirin 81 mg tablet,delayed 81 mg PO DAILY 10/28/19 12/21/24 History release (Aspir-) multivitamin 1 tablet PO DAILY 01/30/22 12/21/24 History calcium 600 mg (as cap PO DAILY 08/03/22 08/25/24 History carbonate)-vitamin D3 12.5 mcg (500 unit) capsule (Calcium with Vit D3) carvedilol 25 mg tablet See Rx Instructions .Route 10/20/24 12/21/24 Rx .COMPLEX #180 tabs nifedipine 30 mg tablet,extended 30 mg PO BID #180 tabs 12/11/24 12/21/24 Rx release 24 hr carbamazepine 400 mg 400 mg PO DAILY 12/22/24 12/22/24 History tablet,extended release,12 hr Allergies Allergy/AdvReac Type Severity Reaction Status Date / Time phenytoin Allergy Unknown Unknown Verified 08/25/24 10:40 Vital Signs Vital Signs - 24 hr 12/23/24 10:43 12/23/24 12:00 12/23/24 14:00 Temperature 37.1 C Pulse Rate 55 L 63 Respiratory Rate 12 Blood Pressure 137/58 L 167/69 H Pulse Oximetry 98 Oxygen Delivery 12/23/24 16:00 12/23/24 20:00 12/23/24 20:00 Temperature Pulse Rate 71 68 66 Respiratory Rate 14 Blood Pressure Pulse Oximetry 97 Oxygen Delivery Room Air 12/23/24 20:30 12/23/24 21:04 12/24/24 00:00 Temperature 37.1 C Pulse Rate 67 68 69 Respiratory Rate 14 Blood Pressure 192/70 H Pulse Oximetry 97 Oxygen Delivery 12/24/24 04:00 12/24/24 04:55 12/24/24 08:38 Temperature 37.0 C Pulse Rate 73 73 Respiratory Rate 16 Blood Pressure 178/70 H Pulse Oximetry 100 97 Oxygen Delivery Room Air 12/24/24 09:07 Temperature Pulse Rate 73 Respiratory Rate Blood Pressure Pulse Oximetry Oxygen Delivery Exam Const: General: comfortable HENMT: Mouth: Yes dry mucous membranes Eyes: EOM: EOMs intact bilaterally Neck: Neck: no JVD Resp: Effort & Inspection: normal respiratory effort Auscultation: clear to auscultation bilaterally Cardio: Rate: regular rate Rhythm: regular rhythm Neuro: Other: Left-sided weakness as well as left facial droop Extrem: General: no pedal edema Results Labs and Meds 12/24/24 05:32 12/24/24 05:32 Lab results: Cardiac Enzymes 12/24/24 Range/Units 05:32 AST 26 (14-36) U/L CBC 12/24/24 Range/Units 05:32 WBC 8.4 (4.5-10.0) K/mm3 RBC 3.96 L (4.2-5.4) M/mm3 Hgb 13.4 (12.0-15.0) g/dL Hct 39.3 (37.0-47.0) % Plt Count 213 (150-375) k/mm3 Lymph # (Auto) 1.67 (0.9-3.2) K/mm3 [place] # (Auto) 1.0 H (0.1-0.6) K/mm3 Eos # (Auto) 0.4 H (0-0.3) K/mm3 Baso # (Auto) 0.0 (0.0-0.1) K/mm3 Comprehensive Metabolic Panel 12/24/24 Range/Units 05:32 Sodium 133 L (137-145) mmol/L Potassium 3.6 (3.4-5.0) mmol/L Chloride 100 (98-107) mmol/L Carbon Dioxide 23 (22-30) mmol/L BUN 18 H (7-17) mg/dL Creatinine 0.67 L (0.7-1.0) mg/dL Glucose 100 (65-110) mg/dL Calcium 8.6 (8.4-10.2) mg/dL AST 26 (14-36) U/L ALT 20 (6-35) U/L Alkaline Phosphatase 79 (38-126) U/L Total Protein 7.0 (6.3-8.2) g/dL Albumin 3.5 (3.5-5.1) g/dL Intake and Output 12/23/24 12/24/24 12/24/24 23:59 07:59 15:59 Intake Total 340 1077.5 237 Output Total 100 300 Balance 240 777.5 237 Intake: IV 977.5 Sodium Chloride 0.9% IV 1,000 977.5 ml @ 75 mls/hr IV CONT .[id number] COUNT INCLUDES THE [facility] Rx#:[id number] Oral 340 100 237 Output: Catheter Urine 100 300 External/Condom 100 300
--- NOTE | 2024-12-24 10:40 | PCOTNOTE ---
Attempted 2 times this A.M. Patient had just finished with PT, worn out and asked for therapist to come back, Therapist came back, Patient had just been layed down by nursing staff. Per Patient and her family requesting therapist come back this P.M. for session and they are very interested in education.
--- NOTE | 2024-12-24 14:32 | P.PNIM_ITS ---
Progress Note: A&P Assessment and Plan (1) Stroke-like symptom: Code(s): R29.90 - Unspecified symptoms and signs involving the nervous system Status: Acute Assessment and Plan: notable left upper extremity and left lower extremity weakness 4/5, aphasia, trouble finding words, balance issues with recent fall, decreased hand eye coordination on finger to nose to finger testing, blurry vision, lightheadedness since 12/18/2024. Patient has history of TIA in the past. * last known well was on 12/18/2024 * chest x-ray showed large hiatal hernia * head/neck CTA revealed a normal aging brain, no acute intracranial process or abnormality, 0% stenosis of the right and left carotid bulbs, unremarkable cerebral CT angiogram with no hemodynamically significant stenosis * continue neuro checks * neurology consulted * Plan for MRI of the brain and brainstem with and without contrast * echo with bubble study ordered * EKG showed sinus rhythm with a rate of 60, QTC 441 * initial blood pressure 228/78-- initiate blood pressure control considering she is out of the window for permissive hypertension * continue cardiac monitoring * PT and OT ordered 12/22/24: * Started Plavix and atorvastatin currently on an ASA * brain MRI Acute infarct involving the posterior right lentiform nucleus and adjacent posterior limb of the right internal capsule. * lipid panel and A1c pending * Neurology ordered MR cervical * Speech evaluation * Echo with bubble pending (2) HTN (hypertension): Qualifiers: Hypertension type: essential hypertension Qualified Code(s): I10 - Essential (primary) hypertension Code(s): I10 - Essential (primary) hypertension Status: Acute Assessment and Plan: * initial blood pressure 228/78 * patient ordered 325 mg of aspirin, Coreg 25 mg, nifedipine XL 30 mg since we are out of the permissive hypertension window 12/22/24: * BP improved 151/67 * nifedipine was increased to 30mg XL BID (3) Hyperlipidemia: Qualifiers: Hyperlipidemia type: mixed hyperlipidemia Qualified Code(s): E78.2 - Mixed hyperlipidemia Code(s): E78.5 - Hyperlipidemia, unspecified Status: Acute Assessment and Plan: * continue aspirin * patient not currently on statins 12/22: * Lipid panel pending * started on atorvastatin 80 mg (4) Epilepsy: Qualifiers: 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 Status epilepticus: without status epilepticus Qualified Code(s): 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 Morelos, neurologist recommended to continue plavix and aspirin dual antiplatelet therapy for 4 weeks and thereafter d/c plavix and continue aspirin, plan is to discharge to acute rehab, patient will benefit with PT, cardiac echo bubble study showed a mild right to left shunt both at rest and with Valsalva. patient family members are present in the room discuss with them in details and answer all their questions. patient PO intake is poor, will start patient on NS 75cc/hr, patient urine ouput is less, will monitor and urine is suspicious, family wants wait before starting abx, as patient does not have any symptoms, for will monitor and further recommendation to follow Code status: Full code per patient DVT prophylaxis: Lovenox Stress ulcer prophylaxis: NA PT/OT notes: PT/ OT evaluation Disposition: patient continues admission for further evaluation and treatment of stroke-like symptoms CT head and CTA with no significant findings currently waiting on MRI brain and echocardiogram, neurology consulted for further recommendations PT OT evaluation to assist with discharge planning needs. Subjective Date/time seen: 12/24/24 14:32 Interval history: This is an 89-year-old female with a significant past medical history of TIA, Hypertension, epilepsy, hyperlipidemia who was admitted to hospital for further evaluation of stroke-like symptoms at home. CT head showed no acute findings currently pending MRI and with Neurology consult Patient with worsening left sided weakness strength 2/5, denies difficulty swallowing but family at bedside report coughing with po medications this am. MRI did show acute infarct of the right posterior lentiform. Patient denied CP, SOB, dizziness but did endorse some blurred vision. patient remain clinically, participitated with PT, today patient is awake, and taking, her left eye has conjunctiva suspect viral, will treat, on 12/[address] Morelos, neurologist recommended to continue plavix and aspirin dual antiplatelet therapy for 4 weeks and thereafter d/c plavix and continue aspirin, plan is to discharge to acute rehab, patient will benefit with PT, cardiac echo bubble study showed a mild right to left shunt both at rest and with Valsalva. patient family members are present in the room discuss with them in details and answer all their questions. patient PO intake is poor, will start patient on NS 75cc/hr, patient urine ouput is less, will monitor and urine is suspicious, family wants wait before starting abx, as patient does not have any symptoms, for will monitor and further recommendation to follow Review of Systems Review of Systems: All systems reviewed & are unremarkable except as noted in HPI and below Exam Narrative: Elderly frail Patient is comfortable, NAD HEENT: eyes are clear and none icteric LUNGS:CTA HEART: RR S1S2 ABD: BS+, Soft and nontender Lower extremities: no edema SKIN: nonjaundiced Neuro: grossly intact. Objective Data Vital Signs Vital Signs: Vital Signs - 24 hr 12/23/24 16:00 12/23/24 20:00 12/23/24 20:00 Temperature Pulse Rate 71 68 66 Respiratory Rate 14 Blood Pressure Pulse Oximetry 97 Oxygen Delivery Room Air 12/23/24 20:30 12/23/24 21:04 12/24/24 00:00 Temperature 37.1 C Pulse Rate 67 68 69 Respiratory Rate 14 Blood Pressure 192/70 H Pulse Oximetry 97 Oxygen Delivery 12/24/24 04:00 12/24/24 04:55 12/24/24 08:38 Temperature 37.0 C Pulse Rate 73 73 Respiratory Rate 16 Blood Pressure 178/70 H Pulse Oximetry 100 97 Oxygen Delivery Room Air 12/24/24 09:07 Temperature Pulse Rate 73 Respiratory Rate Blood Pressure Pulse Oximetry Oxygen Delivery Intake/Output Intake/Output: Intake & Output 12/21/24 12/22/24 12/23/24 12/24/24 23:59 23:59 23:59 23:59 Intake Total 120 515 431 5196.5 Output Total 450 300 Balance 120 973 752 2246.5 Meds/Results Medications: Active Medications Generic Name Dose Route Start Last Admin Trade Name Freq PRN Reason Stop Dose Admin Acetaminophen 650 mg 12/21/24 11:25 Acetaminophen 325 Mg Tablet PO Q4H PRN Mild Pain (1-3) or Fever Hydrocodone Bitart/Acetaminophen 1 tab 12/21/24 11:25 Hydrocodone/Acetaminophen (*Crx) 5-325 Mg Tablet PO Q4H PRN Pain Rated 4-6 Aspirin 81 mg 12/22/24 09:00 12/24/24 09:07 Aspirin 81 Mg Enteric Tablet PO 81 mg DAILY HILARIO Administration Atorvastatin Calcium 80 mg 12/23/24 09:00 12/24/24 09:07 Atorvastatin 40 Mg Tablet PO Not Given DAILY [facility] Carbamazepine 400 mg 12/23/24 09:00 12/24/24 09:07 Carbamazepine Xr 200 Mg Tab.Er.12h PO 400 mg DAILY HILARIO Administration Carvedilol 25 mg 12/21/24 21:00 12/24/24 09:07 Carvedilol 25 Mg Tablet PO 25 mg Q12HR HILARIO Administration Ciprofloxacin 1 drop 12/24/24 17:00 Ciprofloxacin Hcl 0.3% Op Soln 2.5 Ml Btl EACH EYE Q4HR [facility] Clopidogrel Bisulfate 75 mg 12/22/24 09:25 12/24/24 09:07 Clopidogrel Bisulfate 75 Mg Tablet PO 75 mg QAM HILARIO Administration Enoxaparin Sodium 40 mg 12/22/24 09:00 12/24/24 09:07 Enoxaparin 40 Mg/0.4 Ml Syringe SUB-Q 40 mg DAILY HILARIO Administration Sodium Chloride 1,000 mls @ 75 mls/hr 12/23/24 15:20 12/24/24 04:29 Normal Saline Iv IV CONT 75 mls/hr .[id number] HILARIO Administration Multivitamins Therapeutic 1 tablet 12/22/24 09:00 12/24/24 09:06 Multivitamins Therapeutic Tab (*Bkc) PO 1 tablet DAILY HILARIO Administration Nifedipine 30 mg 12/21/24 21:00 12/24/24 09:07 Nifedipine 30 Mg Tab.Er.24 PO 30 mg Q12HR HILARIO Administration Ondansetron HCl 4 mg 12/21/24 11:25 Ondansetron Inj 4 Mg/2 Ml Vial IV PUSH Q4H PRN Nausea Polyethylene Glycol 17 gm 12/24/24 09:00 12/24/24 09:07 Polyethylene Glycol 3350 17 Gm Powd.Pack PO 17 gm QAM HILARIO Administration Senna/Docusate Sodium 1 tab 12/23/24 21:00 12/23/24 20:31 Senna/Docusate Sodium Tablet PO 1 tab HS HILARIO Administration Radiology Results: ITS Impressions Chest X-Ray 12/21/24 09:40 IMPRESSION: 1. Large hiatal hernia. Head/Neck CTA 12/22/24 10:45 IMPRESSION: 1. Normal CTA head Percent stenosis per NASCET criteria is 0%. Brain MRI 12/22/24 11:30 IMPRESSION: 1. 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 2. Additional moderate scattered periventricular predominant calcific white matter T2 hyperintensity consistent with chronic small vessel ischemic disease. Cervical Spine MRI 12/22/24 16:46 IMPRESSION: 1. Severe cervical spondylosis. Modified Barium Swallow 12/23/24 13:39 IMPRESSION: 1. Aspiration. 2. Please refer to the speech therapy report for recommendations. Labs Labs: Laboratory Results - last 24 hr 12/24/24 05:32 WBC 8.4 RBC 3.96 L Hgb 13.4 Hct 39.3 MCV 99.2 MCH 33.8 MCHC 34.1 RDW 11.9 Plt Count 213 MPV 9.9 Immature Gran % (Auto) 0.5 Neut % (Auto) 63.4 Lymph % (Auto) 20.0 [place] % (Auto) 11.5 H Eos % (Auto) 4.2 Baso % (Auto) 0.4 Lymph # (Auto) 1.67 [place] # (Auto) 1.0 H Eos # (Auto) 0.4 H Baso # (Auto) 0.0 Abs Immat Gran (auto) 0.04 H Absolute Neuts (auto) 5.3 Absolute Nucleated RBC 0.000 Nucleated RBC % 0.0 Sodium 133 L Potassium 3.6 Chloride 100 Carbon Dioxide 23 Anion Gap 10 BUN 18 H Creatinine 0.67 L Estim Creat Clear Calc Not Reportable Estimated GFR > 60 Glucose 100 Calcium 8.6 Total Bilirubin 0.7 AST 26 ALT 20 Alkaline Phosphatase 79 Total Protein 7.0 Albumin 3.5 Quality VTE Prophylaxis VTE prophylaxis: pharmacologic ordered
--- NOTE | 2024-12-24 16:32 | P.PNNEUR_ITS ---
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 Further studies may be needed. In the meanwhile there does appear to be some degree of new visual field neglect to the left side without any definite hemianopsia and weakness in the left upper limb greater than right side. She requires physical therapy and dual antiplatelets and statins for now. Her seizures have been under control for last 13 years while on low-dose carbamazepine 400 mg a day. She is on atorvastatin 80 mg a day besides aspirin and Plavix and these should be continued. A CT angiogram head and neck was performed did not show any large vessel occlusion. Radiologic findings were reviewed by myself. Family members were present and I tried my best to answer their questions. Subjective Date/time seen: 12/24/24 16:32 Interval history: The patient is 89-year-old white female seen for a follow-up evaluation. Please refer to initial consultation note by Dr. Howe on 12/22/2024. Patient is a in physical therapy for the left-sided weakness. There appears to be some tendency to look to the left side and neglect the left side of the field of vision however when reminded she is able to count fingers on both sides of the head. There is a history of seizure disorder but she has not had any seizures for last 13 years and she is only on Tegretol 400 mg a day. She was seen by me on 06/15/2024 at the office. On this admission she is admitted due to the new onset of left-sided weakness and her MRI of the brain does show infarct in the right internal capsule region. She is now on aspirin Plavix and Lipitor. The last LDL on 12/23/2023 was 152. The family noted that she wants to keep her right eye sometimes closed and not pay attention to the things on the left side. Review of Systems Review of Systems: All systems reviewed & are unremarkable except as noted in HPI and below Exam Narrative: The patient is a fully conscious alert she seems to neglect the left side of field of vision however no aphasia or dysarthria and I did not find evidence of hemianopia at this time. There is a mild flattening the left nasal labial fold. Mild To moderate weakness of the left upper limb and minimal weakness of the left lower limb. She requires assistance with transfers.. Objective Data Vital Signs Vital Signs: Vital Signs - 24 hr 12/23/24 20:00 12/23/24 20:00 12/23/24 20:30 Temperature Pulse Rate 68 66 67 Respiratory Rate 14 Blood Pressure Pulse Oximetry 97 Oxygen Delivery Room Air 12/23/24 21:04 12/24/24 00:00 12/24/24 04:00 Temperature 98.7 F Pulse Rate 68 69 73 Respiratory Rate 14 Blood Pressure 192/70 H Pulse Oximetry 97 Oxygen Delivery 12/24/24 04:55 12/24/24 08:00 12/24/24 08:00 Temperature 98.6 F Pulse Rate 73 58 L Respiratory Rate 16 Blood Pressure 178/70 H Pulse Oximetry 100 Oxygen Delivery Room Air 12/24/24 08:38 12/24/24 09:07 12/24/24 12:00 Temperature Pulse Rate 73 59 L Respiratory Rate Blood Pressure Pulse Oximetry 97 Oxygen Delivery Room Air 12/24/24 14:00 Temperature 99.3 F Pulse Rate 66 Respiratory Rate 17 Blood Pressure 176/79 H Pulse Oximetry 97 Oxygen Delivery Intake/Output Intake/Output: Intake & Output 12/21/24 12/22/24 12/23/24 12/24/24 23:59 23:59 23:59 23:59 Intake Total 120 705 651 9793.5 Output Total 450 300 Balance 120 934 440 3077.5 Meds/Results Medications: Active Medications Generic Name Dose Route Start Last Admin Trade Name Freq PRN Reason Stop Dose Admin Acetaminophen 650 mg 12/21/24 11:25 Acetaminophen 325 Mg Tablet PO Q4H PRN Mild Pain (1-3) or Fever Hydrocodone Bitart/Acetaminophen 1 tab 12/21/24 11:25 Hydrocodone/Acetaminophen (*Crx) 5-325 Mg Tablet PO Q4H PRN Pain Rated 4-6 Aspirin 81 mg 12/22/24 09:00 12/24/24 09:07 Aspirin 81 Mg Enteric Tablet PO 81 mg DAILY HILARIO Administration Atorvastatin Calcium 80 mg 12/23/24 09:00 12/24/24 09:07 Atorvastatin 40 Mg Tablet PO Not Given DAILY [facility] Carbamazepine 400 mg 12/23/24 09:00 12/24/24 09:07 Carbamazepine Xr 200 Mg Tab.Er.12h PO 400 mg DAILY HILARIO Administration Carvedilol 25 mg 12/21/24 21:00 12/24/24 09:07 Carvedilol 25 Mg Tablet PO 25 mg Q12HR HILARIO Administration Ciprofloxacin 1 drop 12/24/24 17:00 Ciprofloxacin Hcl 0.3% Op Soln 2.5 Ml Btl EACH EYE Q4HR [facility] Clopidogrel Bisulfate 75 mg 12/22/24 09:25 12/24/24 09:07 Clopidogrel Bisulfate 75 Mg Tablet PO 75 mg QAM HILARIO Administration Enoxaparin Sodium 40 mg 12/22/24 09:00 12/24/24 09:07 Enoxaparin 40 Mg/0.4 Ml Syringe SUB-Q 40 mg DAILY [facility] Administration Sodium Chloride 1,000 mls @ 75 mls/hr 12/23/24 15:20 12/24/24 04:29 Normal Saline Iv IV CONT 75 mls/hr .[id number] HILARIO Administration Multivitamins Therapeutic 1 tablet 12/22/24 09:00 12/24/24 09:06 Multivitamins Therapeutic Tab (*Bkc) PO 1 tablet DAILY HILARIO Administration Nifedipine 30 mg 12/21/24 21:00 12/24/24 09:07 Nifedipine 30 Mg Tab.Er.24 PO 30 mg Q12HR [facility] Administration Ondansetron HCl 4 mg 12/21/24 11:25 Ondansetron Inj 4 Mg/2 Ml Vial IV PUSH Q4H PRN Nausea Polyethylene Glycol 17 gm 12/24/24 09:00 12/24/24 09:07 Polyethylene Glycol 3350 17 Gm Powd.Pack PO 17 gm QAM [facility] Administration Senna/Docusate Sodium 1 tab 12/23/24 21:00 12/23/24 20:31 Senna/Docusate Sodium Tablet PO 1 tab HS HILARIO Administration Radiology Results: ITS Impressions Chest X-Ray 12/21/24 09:40 IMPRESSION: 1. Large hiatal hernia. Head/Neck CTA 12/22/24 10:45 IMPRESSION: 1. Normal CTA head Percent stenosis per NASCET criteria is 0%. Brain MRI 12/22/24 11:30 IMPRESSION: 1. 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 2. Additional moderate scattered periventricular predominant calcific white matter T2 hyperintensity consistent with chronic small vessel ischemic disease. Cervical Spine MRI 12/22/24 16:46 IMPRESSION: 1. Severe cervical spondylosis. Modified Barium Swallow 12/23/24 13:39 IMPRESSION: 1. Aspiration. 2. Please refer to the speech therapy report for recommendations. Labs Labs: Laboratory Results - last 24 hr 12/24/24 05:32 WBC 8.4 RBC 3.96 L Hgb 13.4 Hct 39.3 MCV 99.2 MCH 33.8 MCHC 34.1 RDW 11.9 Plt Count 213 MPV 9.9 Immature Gran % (Auto) 0.5 Neut % (Auto) 63.4 Lymph % (Auto) 20.0 [place] % (Auto) 11.5 H Eos % (Auto) 4.2 Baso % (Auto) 0.4 Lymph # (Auto) 1.67 [place] # (Auto) 1.0 H Eos # (Auto) 0.4 H Baso # (Auto) 0.0 Abs Immat Gran (auto) 0.04 H Absolute Neuts (auto) 5.3 Absolute Nucleated RBC 0.000 Nucleated RBC % 0.0 Sodium 133 L Potassium 3.6 Chloride 100 Carbon Dioxide 23 Anion Gap 10 BUN 18 H Creatinine 0.67 L Estim Creat Clear Calc Not Reportable Estimated GFR > 60 Glucose 100 Calcium 8.6 Total Bilirubin 0.7 AST 26 ALT 20 Alkaline Phosphatase 79 Total Protein 7.0 Albumin 3.5
[2024-12-24] MEDS: CIPROFLOXACIN HCL 0.3% OP SOLN 2.5 ML BTL 1 DROP EACH EYE ×2 (17:21→20:29)
[2024-12-24 20:05] LABS: Add Urine Microscopic? YES; Appearance Urine Clear (Clear); Bacteria Urine None Seen /hpf; Bilirubin Urine Negative (Negative); Blood Urine Negative (Negative); Color Urine Yellow (Yellow); Glucose Urine UA Negative (Negative); Ketones Urine 1+ mg/dL (Negative); Leukocyte Esterase Ur 1+ LEU/UL (Negative); Nitrate Urine Negative (Negative); Non Pathogenic Casts 0-2; Protein Urine Negative (Negative); RBC Urine 0-2 /hpf (0-2); Specific Grav Ur 1.014 (1.001-1.035); Squamous Epithelial Cell Urine None Seen /hpf (Few); Urobilinogen Urine 0.2 mg/dL (<2.0)
[2024-12-24] MEDS: SENNA/DOCUSATE SODIUM TABLET 1 TAB PO (20:28)
[2024-12-25] VITALS (9 sets, daily range): BP systolic 158–198; BP diastolic 50–90; PULSE 58–70; RESP 16–18; TEMP 36.3–37.1; O2SAT 98–100
[2024-12-25] MEDS: CIPROFLOXACIN HCL 0.3% OP SOLN 2.5 ML BTL 1 DROP EACH EYE ×6 (01:29→21:34)
[2024-12-25] MEDS: SODIUM CHLORIDE 0.9% IV 1,000 ML 75 ML IV CONT ×2 (01:29→18:26)
[2024-12-25 05:41] LABS: Basophils Percent Auto 0.4 % (0.2-1.2); Eosinophils Absolute Auto 0.2 K/mm3 (0-0.3); Eosinophils Percent Auto 2.4 % (0-4.4); Hematocrit 38.9 % (37.0-47.0); Hemoglobin 13.2 g/dL (12.0-15.0); Immature Granulocyte Absolute 0.04 K/mm3 (0.00-0.031); Immature Granulocyte Percent A 0.4 % (0-0.5); Lymphocytes Absolute Auto 1.87 K/mm3 (0.9-3.2); Lymphocytes Percent Auto 19.5 % (18.3-44.2); Mean Corpuscular HGB Conc 33.9 g/dl (32-36); Mean Corpuscular Hemoglobin 33.6 pg (26-34); Monocytes Absolute Auto 1.2 K/mm3 (0.1-0.6); Monocytes Percent Auto 12.6 % (2.6-8.5); Neutrophils Absolute Auto 6.2 K/mm3 (1.3-6.7); Neutrophils Percent Auto 64.7 % (45.5-73.1); Platelet Count Result 235 k/mm3 (150-375); Red Blood Count 3.93 M/mm3 (4.2-5.4); Red Cell Distribution Width 11.8 % (11.5-14.5); White Blood Count 9.6 K/mm3 (4.5-10.0)
[2024-12-25 05:46] LABS: Alanine Aminotransferase 18 U/L (6-35); Albumin Level 3.7 g/dL (3.5-5.1); Alkaline Phosphatase 78 U/L (38-126); Anion Gap 9 mmol/L (4-12); Aspartate Amino Transferase 25 U/L (14-36); Bilirubin,Total 0.7 mg/dL (0.2-1.3); Blood Urea Nitrogen 12 mg/dL (7-17); Calcium 8.7 mg/dL (8.4-10.2); Carbon Dioxide 23 mmol/L (22-30); Chloride 103 mmol/L (98-107); Estimated Glomerular Filt Rate > 60; Glucose 109 mg/dL (65-110); Potassium 3.8 mmol/L (3.4-5.0); Sodium 135 mmol/L (137-145)
[2024-12-25] MEDS: carvediloL 25 MG TABLET PO ×2 (08:39→21:35)
[2024-12-25] MEDS: NIFEdipine 30 MG TAB.ER.24 PO ×2 (08:39→21:34)
[2024-12-25] MEDS: MULTIVITAMINS THERAPEUTIC TAB (*BKC) 1 TABLET PO (08:39)
[2024-12-25] MEDS: ENOXAPARIN 40 MG/0.4 ML SYRINGE SUB-Q (08:39)
[2024-12-25] MEDS: ASPIRIN 81 MG ENTERIC TABLET PO (08:39)
[2024-12-25] MEDS: CARBAMAZEPINE XR 200 MG TAB.ER.12H 400 MG PO (08:39)
[2024-12-25] MEDS: CLOPIDOGREL BISULFATE 75 MG TABLET PO (08:39)
[2024-12-25] MEDS: polyethylene glycoL 3350 17 GM POWD.PACK PO (08:40)
--- NOTE | 2024-12-25 11:30 | PCOTNOTE ---
Attempted x2 this A.M. Patient has already received PT and ST services, states , worn out. Patient's family requests to try back at a later time.
--- NOTE | 2024-12-25 13:10 | PCPTNOTE ---
plan of PT treatment frequency reduced to 3-5x/wk due to pt tolerance of treatment. Family agreed to reduction.
--- NOTE | 2024-12-25 14:25 | PM.DS ---
DS: Summary Time Spent with Patient Time attestation: Total time spent providing and/or coordinating discharge services: DS: Data Data Completed and Pending Labs on day of discharge: Labs from last 24 hours 12/25/24 12/24/24 04:51 19:54 WBC 9.6 RBC 3.93 L Hgb 13.2 Hct 38.9 MCV 99.0 MCH 33.6 MCHC 33.9 RDW 11.8 Plt Count 235 MPV 10.0 Immature Gran % (Auto) 0.4 Neut % (Auto) 64.7 Lymph % (Auto) 19.5 [place] % (Auto) 12.6 H Eos % (Auto) 2.4 Baso % (Auto) 0.4 Lymph # (Auto) 1.87 [place] # (Auto) 1.2 H Eos # (Auto) 0.2 Baso # (Auto) 0.0 Abs Immat Gran (auto) 0.04 H Absolute Neuts (auto) 6.2 Absolute Nucleated RBC 0.000 Nucleated RBC % 0.0 Sodium 135 L Potassium 3.8 Chloride 103 Carbon Dioxide 23 Anion Gap 9 BUN 12 D Creatinine 0.55 L Estim Creat Clear Calc Not Reportable Estimated GFR > 60 Glucose 109 Calcium 8.7 Total Bilirubin 0.7 AST 25 ALT 18 Alkaline Phosphatase 78 Total Protein 7.0 Albumin 3.7 Urine Color Yellow Urine Appearance Clear Urine pH 7.0 Ur Specific [place] 1.014 Urine Protein Negative Urine Glucose (UA) Negative Urine Ketones 1+ H Ur Blood (Man) Negative Urine Nitrate Negative Urine Bilirubin Negative Urine Urobilinogen 0.2 Leukocyte Esterase Rfl 1+ H Urine RBC 0-2 Urine WBC 6-10 H Ur Squamous Epith Cells None seen Urine Bacteria None seen Urine Casts 0-2 Discharge Plan Discharge Attending physician on discharge: Guero Stratton Consulting providers: Angel Morelos; Chelsey Morales; Beryl Valdez Discharging Clinician: Ranjeet Mckinney [facility] Disposition[facility] Activity: as tolerated Diet: heart healthy Discharge Instructions: patient to follow up with her primary care provider as soon as possible. Patient will stop taking her Plavix after completing 26 doses and will continue taking aspirin. Patient Instructions: Antibiotic Form Patient Language: Liberian Stand Alone Forms: General Discharge Information Follow-up/Referrals: Amber Muse MD [Primary Care Provider] - Saul Joy MD [Physician] - Call for Appointment Discharge Medications: New clopidogrel 75 mg Tablet 75 mg PO QAM Qty: 26 0RF atorvastatin 40 mg Tablet 80 mg PO DAILY Qty: 30 0RF sennosides-docusate sodium [Senokot-S] 8.6-50 mg Tablet 1 tab-cap PO HS Qty: 30 0RF polyethylene glycol 3350 [Miralax] 17 gram Powder In Packet 17 g PO QAM Qty: 14 0RF ciprofloxacin HCl 0.3 % Drops 1 drp EACH EYE Q4HR Qty: 2.5 0RF Continued multivitamin Tablet 1 tablet PO DAILY calcium carbonate-vitamin D3 [Calcium 600 with Vitamin D3] 600 mg-12.5 mcg (500 unit) capsule PO DAILY carbamazepine 400 mg tablet extended release 12 hr 400 mg PO DAILY aspirin [Aspir-81] 81 mg tablet,delayed release (DR/EC) 81 mg PO DAILY Rx Instructions: take 1 tablet by oral route every day carvedilol 25 mg tablet See Rx Instructions .ROUTE .COMPLEX Qty: 180 3RF Dose Instruction: TAKE 1 TABLET BY MOUTH TWICE A DAY Rx Instructions: TAKE 1 TABLET BY MOUTH TWICE A DAY nifedipine 30 mg tablet extended release 24hr 30 mg PO BID Qty: 180 1RF Date of admission: 12/21/24 13:39 Primary Care Provider: Amber Muse Admitting Provider: Ranjeet Mckinney Attending physician on admission: Guero Stratton Condition: Stable
[2024-12-25] MEDS: hydrALAZINE 10 MG TABLET PO (14:49)
[2024-12-25 15:05] LABS: SARS-CoV-2 RNA PCR Negative (Negative)
[2024-12-25] MEDS: BISACODYL 10 MG SUPPOSITORY RECTAL (15:43)
--- NOTE | 2024-12-25 15:50 | P.PNIM_ITS ---
Progress Note: A&P Assessment and Plan (1) Stroke-like symptom: Code(s): R29.90 - Unspecified symptoms and signs involving the nervous system Status: Acute Assessment and Plan: notable left upper extremity and left lower extremity weakness 4/5, aphasia, trouble finding words, balance issues with recent fall, decreased hand eye coordination on finger to nose to finger testing, blurry vision, lightheadedness since 12/18/2024. Patient has history of TIA in the past. * last known well was on 12/18/2024 * chest x-ray showed large hiatal hernia * head/neck CTA revealed a normal aging brain, no acute intracranial process or abnormality, 0% stenosis of the right and left carotid bulbs, unremarkable cerebral CT angiogram with no hemodynamically significant stenosis * continue neuro checks * neurology consulted * Plan for MRI of the brain and brainstem with and without contrast * echo with bubble study ordered * EKG showed sinus rhythm with a rate of 60, QTC 441 * initial blood pressure 228/78-- initiate blood pressure control considering she is out of the window for permissive hypertension * continue cardiac monitoring * PT and OT ordered 12/22/24: * Started Plavix and atorvastatin currently on an ASA * brain MRI 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 * lipid panel and A1c pending * Neurology ordered MR cervical * Speech evaluation * Echo with bubble pending (2) HTN (hypertension): Qualifiers: Hypertension type: essential hypertension Qualified Code(s): I10 - Essential (primary) hypertension Code(s): I10 - Essential (primary) hypertension Status: Acute Assessment and Plan: * initial blood pressure 228/78 * patient ordered 325 mg of aspirin, Coreg 25 mg, nifedipine XL 30 mg since we are out of the permissive hypertension window 12/22/24: * BP improved 151/67 * nifedipine was increased to 30mg XL BID (3) Hyperlipidemia: Qualifiers: Hyperlipidemia type: mixed hyperlipidemia Qualified Code(s): E78.2 - Mixed hyperlipidemia Code(s): E78.5 - Hyperlipidemia, unspecified Status: Acute Assessment and Plan: * continue aspirin * patient not currently on statins 12/22: * Lipid panel pending * started on atorvastatin 80 mg (4) Epilepsy: Qualifiers: 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 Status epilepticus: without status epilepticus Qualified Code(s): 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 Morelos, neurologist recommended to continue plavix and aspirin dual antiplatelet therapy for 4 weeks and thereafter d/c plavix and continue aspirin, plan is to discharge to acute rehab, patient will benefit with PT, cardiac echo bubble study showed a mild right to left shunt both at rest and with Valsalva. patient family members are present in the room discuss with them in details and answer all their questions. patient PO intake is poor, will start patient on NS 75cc/hr, patient urine ouput is less, will monitor and urine is suspicious for UTI however urine culture no growth so far, patient has not had a bowel movement for q week, patient is being treated with senna and MiraLax patient has a very poor p.o. intake and does not want to take medication, KUB did not show any obst ruction, will give suppository, as patient does not have any symptoms, plan was to discharge the patient today to a [facility] however patient has not had a bowel movement so the facility would not take, will monitor and further recommendation to follow Code status: Full code per patient DVT prophylaxis: Lovenox Stress ulcer prophylaxis: NA PT/OT notes: PT/ OT evaluation Disposition: patient continues admission for further evaluation and treatment of stroke-like symptoms CT head and CTA with no significant findings currently waiting on MRI brain and echocardiogram, neurology consulted for further recommendations PT OT evaluation to assist with discharge planning needs. Subjective Date/time seen: 12/25/24 15:50 Interval history: This is an 89-year-old female with a significant past medical history of TIA, Hypertension, epilepsy, hyperlipidemia who was admitted to hospital for further evaluation of stroke-like symptoms at home. CT head showed no acute findings currently pending MRI and with Neurology consult Patient with worsening left sided weakness strength 2/5, denies difficulty swallowing but family at bedside report coughing with po medications this am. MRI did show acute infarct of the right posterior lentiform. Patient denied CP, SOB, dizziness but did endorse some blurred vision. patient remain clinically, participitated with PT, today patient is awake, and taking, her left eye has conjunctiva suspect viral, will treat, on 12/[address] Morelos, neurologist recommended to continue plavix and aspirin dual antiplatelet therapy for 4 weeks and thereafter d/c plavix and continue aspirin, plan is to discharge to acute rehab, patient will benefit with PT, cardiac echo bubble study showed a mild right to left shunt both at rest and with Valsalva. patient family members are present in the room discuss with them in details and answer all their questions. patient PO intake is poor, will start patient on NS 75cc/hr, patient urine ouput is less, will monitor and urine is suspicious for UTI however urine culture no growth so far, patient has not had a bowel movement for q week, patient is being treated with senna and MiraLax patient has a very poor p.o. intake and does not want to take medication, KUB did not show any obstruction, will give suppository, as patient does not have any symptoms, plan was to discharge the patient today to a [facility] however patient has not had a bowel movement so the facility would not take, will monitor and further rec ommendation to follow Review of Systems Review of Systems: All systems reviewed & are unremarkable except as noted in HPI and below Exam Narrative: Elderly frail Patient is comfortable, NAD HEENT: eyes are clear and none icteric LUNGS:CTA HEART: RR S1S2 ABD: BS+, Soft and nontender Lower extremities: no edema SKIN: nonjaundiced Neuro: grossly intact. Objective Data Vital Signs Vital Signs: Vital Signs - 24 hr 12/24/24 16:00 12/24/24 20:00 12/24/24 20:00 Temperature Pulse Rate 60 69 63 Respiratory Rate 16 Blood Pressure Pulse Oximetry 98 Oxygen Delivery Room Air 12/24/24 20:27 12/24/24 20:38 12/25/24 00:00 Temperature 36.9 C Pulse Rate 70 69 61 Respiratory Rate 16 Blood Pressure 189/82 H Pulse Oximetry 98 Oxygen Delivery 12/25/24 04:00 12/25/24 06:09 12/25/24 08:00 Temperature 36.4 C Pulse Rate 67 70 Respiratory Rate 16 Blood Pressure 180/90 H Pulse Oximetry 98 Oxygen Delivery Room Air 12/25/24 08:00 12/25/24 08:39 12/25/24 13:53 Temperature 37.1 C Pulse Rate 70 70 68 Respiratory Rate 18 Blood Pressure 198/67 H Pulse Oximetry 98 Oxygen Delivery Intake/Output Intake/Output: Intake & Output 12/22/24 12/23/24 12/24/24 12/25/24 23:59 23:59 23:59 23:59 Intake Total 501 593 9989.5 50 Output Total 587 853 1827 Balance 156 071 3978.5 -1050 Meds/Results Medications: Active Medications Generic Name Dose Route Start Last Admin Trade Name Freq PRN Reason Stop Dose Admin Acetaminophen 650 mg 12/21/24 11:25 Acetaminophen 325 Mg Tablet PO Q4H PRN Mild Pain (1-3) or Fever Hydrocodone Bitart/Acetaminophen 1 tab 12/21/24 11:25 Hydrocodone/Acetaminophen (*Crx) 5-325 Mg Tablet PO Q4H PRN Pain Rated 4-6 Aspirin 81 mg 12/22/24 09:00 12/25/24 08:39 Aspirin 81 Mg Enteric Tablet PO 81 mg DAILY HILARIO Administration Atorvastatin Calcium 80 mg 12/23/24 09:00 12/25/24 08:40 Atorvastatin 40 Mg Tablet PO Not Given DAILY HILARIO Carbamazepine 400 mg 12/23/24 09:00 12/25/24 08:39 Carbamazepine Xr 200 Mg Tab.Er.12h PO 400 mg DAILY HILARIO Administration Carvedilol 25 mg 12/21/24 21:00 12/25/24 08:39 Carvedilol 25 Mg Tablet PO 25 mg Q12HR HILARIO Administration Ciprofloxacin 1 drop 12/24/24 17:00 12/25/24 12:40 Ciprofloxacin Hcl 0.3% Op Soln 2.5 Ml Btl EACH EYE 1 drop Q4HR HILARIO Administration Clopidogrel Bisulfate 75 mg 12/22/24 09:25 12/25/24 08:39 Clopidogrel Bisulfate 75 Mg Tablet PO 75 mg QAM HILARIO Administration Enoxaparin Sodium 40 mg 12/22/24 09:00 12/25/24 08:39 Enoxaparin 40 Mg/0.4 Ml Syringe SUB-Q 40 mg DAILY HILARIO Administration Sodium Chloride 1,000 mls @ 75 mls/hr 12/23/24 15:20 12/25/24 01:29 Normal Saline Iv IV CONT 75 mls/hr .[id number] HILARIO Administration Multivitamins Therapeutic 1 tablet 12/22/24 09:00 12/25/24 08:39 Multivitamins Therapeutic Tab (*Bkc) PO 1 tablet DAILY HILARIO Administration Nifedipine 30 mg 12/21/24 21:00 12/25/24 08:39 Nifedipine 30 Mg Tab.Er.24 PO 30 mg Q12HR HILARIO Administration Ondansetron HCl 4 mg 12/21/24 11:25 Ondansetron Inj 4 Mg/2 Ml Vial IV PUSH Q4H PRN Nausea Polyethylene Glycol 17 gm 12/24/24 09:00 12/25/24 08:40 Polyethylene Glycol 3350 17 Gm Powd.Pack PO 17 gm QAM HILARIO Administration Senna/Docusate Sodium 1 tab 12/23/24 21:00 12/24/24 20:28 Senna/Docusate Sodium Tablet PO 1 tab HS HILARIO Administration Radiology Results: ITS Impressions Chest X-Ray 12/21/24 09:40 IMPRESSION: 1. Large hiatal hernia. Head/Neck CTA 12/22/24 10:45 IMPRESSION: 1. Normal CTA head Percent stenosis per NASCET criteria is 0%. Brain MRI 12/22/24 11:30 IMPRESSION: 1. 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 2. Additional moderate scattered periventricular predominant calcific white matter T2 hyperintensity consistent with chronic small vessel ischemic disease. Cervical Spine MRI 12/22/24 16:46 IMPRESSION: 1. Severe cervical spondylosis. Modified Barium Swallow 12/23/24 13:39 IMPRESSION: 1. Aspiration. 2. Please refer to the speech therapy report for recommendations. Abdomen X-Ray 12/25/24 11:33 IMPRESSION: 1. Large hiatal hernia containing colon. Labs Labs: Laboratory Results - last 24 hr 12/24/24 12/25/24 12/25/24 19:54 04:51 14:21 WBC 9.6 RBC 3.93 L Hgb 13.2 Hct 38.9 MCV 99.0 MCH 33.6 MCHC 33.9 RDW 11.8 Plt Count 235 MPV 10.0 Immature Gran % (Auto) 0.4 Neut % (Auto) 64.7 Lymph % (Auto) 19.5 Garland % (Auto) 12.6 H Eos % (Auto) 2.4 Baso % (Auto) 0.4 Lymph # (Auto) 1.87 [place] # (Auto) 1.2 H Eos # (Auto) 0.2 Baso # (Auto) 0.0 Abs Immat Gran (auto) 0.04 H Absolute Neuts (auto) 6.2 Absolute Nucleated RBC 0.000 Nucleated RBC % 0.0 Sodium 135 L Potassium 3.8 Chloride 103 Carbon Dioxide 23 Anion Gap 9 BUN 12 D Creatinine 0.55 L Estim Creat Clear Calc Not Reportable Estimated GFR > 60 Glucose 109 Calcium 8.7 Total Bilirubin 0.7 AST 25 ALT 18 Alkaline Phosphatase 78 Total Protein 7.0 Albumin 3.7 Urine Color Yellow Urine Appearance Clear Urine pH 7.0 Ur Specific Raven 1.014 Urine Protein Negative Urine Glucose (UA) Negative Urine Ketones 1+ H Ur Blood (Man) Negative Urine Nitrate Negative Urine Bilirubin Negative Urine Urobilinogen 0.2 Leukocyte Esterase Rfl 1+ H Urine RBC 0-2 Urine WBC 6-10 H Ur Squamous Epith Cells None seen Urine Bacteria None seen Urine Casts 0-2 SARS-CoV-2 RNA (RT-PCR) Negative Quality VTE Prophylaxis VTE prophylaxis: pharmacologic ordered
[2024-12-25] MEDS: SENNA/DOCUSATE SODIUM TABLET 1 TAB PO (21:34)
--- NOTE | 2024-12-26 02:56 | PC.NURSE ---
Prelim UA +E.coli, Martine Baker notified, no new orders. Lab did not notify nursing staff of abnormal results.
[2024-12-26 05:52] LABS: Basophils Percent Auto 0.4 % (0.2-1.2); Eosinophils Absolute Auto 0.3 K/mm3 (0-0.3); Eosinophils Percent Auto 4.1 % (0-4.4); Hematocrit 36.2 % (37.0-47.0); Hemoglobin 12.2 g/dL (12.0-15.0); Immature Granulocyte Absolute 0.03 K/mm3 (0.00-0.031); Immature Granulocyte Percent A 0.4 % (0-0.5); Lymphocytes Absolute Auto 1.71 K/mm3 (0.9-3.2); Lymphocytes Percent Auto 23.1 % (18.3-44.2); Mean Corpuscular HGB Conc 33.7 g/dl (32-36); Mean Corpuscular Hemoglobin 33.8 pg (26-34); Mean Corpuscular Volume 100.3 fl (80-100); Mean Platelet Volume 9.8 fl (7.4-10.4); Monocytes Absolute Auto 0.9 K/mm3 (0.1-0.6); Monocytes Percent Auto 12.2 % (2.6-8.5); Neutrophils Absolute Auto 4.4 K/mm3 (1.3-6.7); Neutrophils Percent Auto 59.8 % (45.5-73.1); Platelet Count Result 209 k/mm3 (150-375); Red Blood Count 3.61 M/mm3 (4.2-5.4); Red Cell Distribution Width 11.9 % (11.5-14.5); White Blood Count 7.4 K/mm3 (4.5-10.0)
[2024-12-26 06:00] VITALS: BP 130/55; PULSE 60; RESP 18; TEMP 36.6; O2SAT 95
[2024-12-26 06:10] LABS: Alanine Aminotransferase 17 U/L (6-35); Albumin Level 3.4 g/dL (3.5-5.1); Alkaline Phosphatase 74 U/L (38-126); Anion Gap 9 mmol/L (4-12); Aspartate Amino Transferase 23 U/L (14-36); Bilirubin,Total 0.7 mg/dL (0.2-1.3); Blood Urea Nitrogen 13 mg/dL (7-17); Calcium 8.5 mg/dL (8.4-10.2); Carbon Dioxide 22 mmol/L (22-30); Chloride 104 mmol/L (98-107); Estimated Glomerular Filt Rate > 60; Glucose 93 mg/dL (65-110); Potassium 3.8 mmol/L (3.4-5.0); Sodium 135 mmol/L (137-145)
[2024-12-26] MEDS: SODIUM CHLORIDE 0.9% IV 1,000 ML 75 ML IV CONT (07:50)
[2024-12-26] MEDS: CARBAMAZEPINE XR 200 MG TAB.ER.12H 400 MG PO (09:52)
[2024-12-26] MEDS: ENOXAPARIN 40 MG/0.4 ML SYRINGE SUB-Q (09:52)
[2024-12-26 09:53] VITALS: PULSE 62
[2024-12-26] MEDS: MULTIVITAMINS THERAPEUTIC TAB (*BKC) 1 TABLET PO (09:53)
[2024-12-26] MEDS: carvediloL 25 MG TABLET PO (09:53)
[2024-12-26] MEDS: ASPIRIN 81 MG ENTERIC TABLET PO (09:54)
[2024-12-26] MEDS: CLOPIDOGREL BISULFATE 75 MG TABLET PO (09:54)
[2024-12-26] MEDS: NIFEdipine 30 MG TAB.ER.24 PO (09:54)
[2024-12-26] MEDS: CIPROFLOXACIN HCL 0.3% OP SOLN 2.5 ML BTL 1 DROP EACH EYE (09:55)
[2024-12-26 13:22] VITALS: BP 176/65; PULSE 57; RESP 18; TEMP 36.9; O2SAT 99
--- NOTE | 2025-01-06 17:03 | PM.DS ---
DS: Admitting Diagnosis Discharge Date 12/25/24 Admitting Diagnosis Suspected CVA DS: Discharge Diagnosis Discharge Diagnosis (1) Stroke-like symptom: Code(s): R29.90 - Unspecified symptoms and signs involving the nervous system Status: Acute (2) HTN (hypertension): Qualifiers: Hypertension type: essential hypertension Qualified Code(s): I10 - Essential (primary) hypertension Code(s): I10 - Essential (primary) hypertension Status: Acute (3) Hyperlipidemia: Qualifiers: Hyperlipidemia type: mixed hyperlipidemia Qualified Code(s): E78.2 - Mixed hyperlipidemia Code(s): E78.5 - Hyperlipidemia, unspecified Status: Acute (4) Epilepsy: Qualifiers: 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 Status epilepticus: without status epilepticus Qualified Code(s): 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 Morelos, neurologist recommended to continue plavix and aspirin dual antiplatelet therapy for 4 weeks and thereafter d/c plavix and continue aspirin, plan is to discharge to acute rehab, patient will benefit with PT, cardiac echo bubble study showed a mild right to left shunt both at rest and with Valsalva.patient family members are present in the room discuss with them in details and answer all their questions. patient PO intake is poor, will start patient on NS 75cc/hr, patient urine ouput is less, will monitor and urine is suspicious for UTI however urine culture no growth so far, patient has not had a bowel movement for q week, patient is being treated with senna and MiraLax patient has a very poor p.o. intake and does not want to take medication, KUB did not show any obstruction, will give suppository, as patient does not have any symptoms, plan was to discharge the patient today to a [place] [facility] however patient has not had a bowel movement so the facility would not take, will monitor and further recommendation to follow. patient BM patient is clinically stable, will discharge today. Time Spent with Patient Time attestation: Total time spent providing and/or coordinating discharge services: Discharge Plan Discharge Attending physician on discharge: Guero Stratton Consulting providers: Angel Morelos; Chelsey Morales; Beryl Valdez; Saul Joy; Silvia Wade; Bindu Buitrago; Henrry Poon V.; Zechariah Collins; Juan Jose Hung Discharging Clinician: Ranjeet Mckinney Patient Disposition: NH Fdc/Asst Living Activity: as tolerated Diet: heart healthy Discharge Instructions: patient to follow up with her primary care provider as soon as possible. Patient will stop taking her Plavix after completing 26 doses and will continue taking aspirin. Patient Instructions: Antibiotic Form Patient Language: Burkinan Stand Alone Forms: General Discharge Information Follow-up/Referrals: Amber Muse MD [Primary Care Provider] - Saul Joy MD [Physician] - Call for Appointment Discharge Medications: New atorvastatin 40 mg Tablet 80 mg PO DAILY Qty: 30 0RF sennosides-docusate sodium [Senokot-S] 8.6-50 mg Tablet 1 tab-cap PO HS Qty: 30 0RF clopidogrel 75 mg Tablet 75 mg PO QAM Qty: 26 0RF ciprofloxacin HCl 0.3 % Drops 1 drp EACH EYE Q4HR Qty: 2.5 0RF polyethylene glycol 3350 [Miralax] 17 gram Powder In Packet 17 g PO QAM Qty: 14 0RF Continued multivitamin Tablet 1 tablet PO DAILY calcium carbonate-vitamin D3 [Calcium 600 with Vitamin D3] 600 mg-12.5 mcg (500 unit) capsule PO DAILY carbamazepine 400 mg tablet extended release 12 hr 400 mg PO DAILY aspirin [Aspir-81] 81 mg tablet,delayed release (DR/EC) 81 mg PO DAILY Rx Instructions: take 1 tablet by oral route every day carvedilol 25 mg tablet See Rx Instructions .ROUTE .COMPLEX Qty: 180 3RF Dose Instruction: TAKE 1 TABLET BY MOUTH TWICE A DAY Rx Instructions: TAKE 1 TABLET BY MOUTH TWICE A DAY nifedipine 30 mg tablet extended release 24hr 30 mg PO BID Qty: 180 1RF Date of admission: 12/21/24 13:39 Primary Care Provider: Amber Muse Admitting Provider: Ranjeet Mckinney Attending physician on admission: Ranjeet Mckinney Condition: Stable
== END 2024-12-26 15:38 | DRG 65 ==
LOC: ANHED 09:41 → ANH3MEDSUR 12:01 → ANH2MED 16:56
PROVIDERS: Nurse Practitioner Acute Care; Nurse Practitioner Family; Admitting Provider Family Medicine; Emergency Provider Emergency Medicine; PCP Family Medicine; Visit Provider Family Medicine
DX: I63.9 Cerebral infarction, unspecified (principal); G81.94 Hemiplegia, unspecified affecting left nondominant side; Q21.12 Patent foramen ovale; H53.8 Other visual disturbances; I10 Essential (primary) hypertension; E78.5 Hyperlipidemia, unspecified; K44.9 Diaphragmatic hernia without obstruction or gangrene; B30.9 Viral conjunctivitis, unspecified; G40.909 Epilepsy, unspecified, not intractable, without status epilepticus; R29.705 NIHSS score 5; Z11.52 Encounter for screening for COVID-19; Z79.82 Long term (current) use of aspirin
CPT/HCPCS: 36415; 70496; 70498; 70553; 71045; 72141; 74018; 80053; 80061; 81001; 83036; 84484; 85025; 85610; 85730; 87086; 87186; 87635; 92523; 92526; 92610; 92611; 93005; 93306; 96374; 96375; 97110; 97112; 97161; 97166; 97530; 97535; 99285; A9270; A9579; G0378; J1650; J7030; Q9967